=== PATIENT | female | born 1950 | race Caucasian/White ===

== ENCOUNTER 2016-11-21 06:18 | Inpatient (IN) | payer BC, OTHER ==
[~2016-11-21] VITALS: Ht 160 cm; Wt 77.3 kg
[~2016-11-21 06:18] MED LIST: BENTYL10 MG PO; BENTYL20 MG PO; DICYCLOMINE HCL10 MG PO; DILAUDID2 MG PO; DIOVAN HCT 11 TABLET PO; DIOVAN160 MG; KEFLEX250 MG PO; KEFLEX500 MG PO; LEVOTHYROXINE112 MCG PO; LEVSIN-SL0.125 MG SL; LIDOCAINE700 MG TD; MECLIZINE HCL25 MG PO; OXAYDO5 MG PO; PERCOCET 5/31 TABLET PO; PROTONIX20 MG PO; PROTONIX40 MG PO; RANITIDINE HCL300 MG PO; SYNTHROID88 MCG PO; VALIUM5 MG PO; VALSARTAN-HCTZ1 EAC1 PO; VENTOLIN HFA18 GM IH; VICODIN 5-3001 EACH PO; ZANTAC150 MG PO; ZANTAC300 MG PO; ZOFRAN4 MG PO
[2016-11-21 07:24] VITALS: BP 134/71
[2016-11-21 07:25] VITALS: BP 134/71
[2016-11-21 17:58] VITALS: BP 105/57
[2016-11-21 19:42] VITALS: BP 130/62
[2016-11-21 23:38] VITALS: BP 96/53
[2016-11-22 03:41] VITALS: BP 99/51
[2016-11-22 04:00] VITALS: BP 100/60
[2016-11-22 07:18] VITALS: BP 99/53
[2016-11-22 15:14] VITALS: BP 82/51
[2016-11-22 15:30] VITALS: BP 110/58
[2016-11-23 00:22] VITALS: BP 101/53
[2016-11-23 07:57] VITALS: BP 103/57
[2016-11-23 15:35] VITALS: BP 115/60
[2016-11-24 00:12] VITALS: BP 108/65
[2016-11-24 07:34] VITALS: BP 136/88
[2016-11-24 11:46] VITALS: BP 103/59
[2016-11-24] MEDS ORDERED: BACLOFEN10 MG PO (17:59)
[2016-11-24] MEDS ORDERED: DIAZEPAM5 MG PO (18:01)
== END 2016-11-24 17:30 | DRG 460 ==
LOC: 2SOUTH 06:18 → 3EAST 06:18 → 2SOUTH 11:00 → EDSTATUS 12:17 → SDC 12:17 → 2SOUTH 12:22 → 3EAST 17:38
DX: M43.16 Spondylolisthesis, lumbar region (principal); M51.16 Intervertebral disc disorders with radiculopathy, lumbar region; K22.70 Barrett's esophagus without dysplasia; I10 Essential (primary) hypertension; E03.9 Hypothyroidism, unspecified; Z68.30 Body mass index [BMI] 30.0-30.9, adult; Z87.442 Personal history of urinary calculi; Z90.49 Acquired absence of other specified parts of digestive tract
CPT/HCPCS: 72100; 76000; 84132; 97530 GO; J0330; J1100; J1170; J1580; J2405; J2765; J3010; J3370; J3480

== ENCOUNTER 2016-11-24 15:38 | Inpatient (IN) | payer BC, OTHER ==
[~2016-11-24] VITALS: Ht 160 cm; Wt 71.0 kg
[2016-11-24 17:46] VITALS: BP 152/67
[2016-11-24 17:54] VITALS: BP 152/67
[2016-11-24] MEDS ORDERED: BACLOFEN10 MG PO (17:59)
[2016-11-24] MEDS ORDERED: DIAZEPAM5 MG PO (18:01)
[2016-11-25 05:06] VITALS: BP 119/59
[2016-11-25 06:08] LABS: HEMATOCRIT 39.2 % (36.0-46.0); MCH 27.8 PG (29.0-34.0); MCHC 31.9 G/DL (30.0-36.0); MCV 87.1 FL (83-99); MEAN PLAT.VOLUME 10.4 uM^3 (9.5-12.4); PLATELET COUNT 297 K/uL (156-360); RBC DIS.WIDTH-CV 13.2 % (11.8-14.6); WHITE BLOOD COUNT 3.1 K/uL (4.1-10.2)
[2016-11-25 07:36] LABS: CHLORIDE 104 mEq/L (99-109); POTASSIUM 3.7 mEq/L (3.7-5.4); SODIUM 143 mEq/L (136-147)
[2016-11-25 07:38] LABS: GLUCOSE 96 mg/dL (70-99)
[2016-11-25 07:40] LABS: ANION GAP 16 MEQ/L (2-14); TOTAL BILIRUBIN 0.6 mg/dL (0.0-1.0)
[2016-11-25 07:42] LABS: ALKALINE PHOSPHATASE 67 IU/L (3-129); GFR ESTIMATE (CALCULATED) > 59 mL/min/
[2016-11-25 07:43] LABS: UREA NITROGEN (BUN) 14 mg/dL (9-23)
[2016-11-25 08:41] LABS: ABS NEUTROPHIL COUNT 1.5; ANISOCYTOSIS 1+; EOSINOPHIL ABS CT 0.1; INSTRUMENT ABS NEUTROPHIL CT 1.5 K/uL; PLAT.SUFFICIENCY ADEQUATE
[2016-11-25 12:35] VITALS: BP 132/64
[2016-11-27 09:51] LABS: POC NON-PRINT COM 1 ND
== END 2016-11-25 15:25 | DRG 556 ==
LOC: 3WEST 15:38
PROVIDERS: Psychiatry & Neurology Neurology
PROC: F07M0ZZ Range of Motion and Joint Mobility Treatment of Musculoskeletal System - Whole Body (ICD-10-PCS; principal; 2016-11-24)
DX: R26.2 Difficulty in walking, not elsewhere classified (principal); Z98.1 Arthrodesis status; K56.60 Unspecified intestinal obstruction; K91.2 Postsurgical malabsorption, not elsewhere classified; E03.9 Hypothyroidism, unspecified; I10 Essential (primary) hypertension; K21.9 Gastro-esophageal reflux disease without esophagitis; K22.70 Barrett's esophagus without dysplasia; M54.5 Low back pain; G89.29 Other chronic pain; Z80.0 Family history of malignant neoplasm of digestive organs; Z83.3 Family history of diabetes mellitus; Z86.19 Personal history of other infectious and parasitic diseases; Z90.49 Acquired absence of other specified parts of digestive tract; Z88.0 Allergy status to penicillin; Z88.1 Allergy status to other antibiotic agents; Z88.2 Allergy status to sulfonamides
CPT/HCPCS: 71010; 74020; 80053; 82272; 85025; C9113; J1170; J2405; J7030

== ENCOUNTER 2016-11-25 14:24 | Inpatient (IN) | payer BC, OTHER ==
[~2016-11-25] VITALS: Ht 160 cm; Wt 67.7 kg
[~2016-11-25 14:24] MED LIST changes: +BACLOFEN10 MG PO; +DIAZEPAM5 MG PO
[2016-11-25 15:45] VITALS: BP 128/62
[2016-11-25 20:36] VITALS: BP 120/61
[2016-11-26 00:38] VITALS: BP 147/62
[2016-11-26 04:14] VITALS: BP 128/68
[2016-11-26 06:42] LABS: HEMATOCRIT 36.2 % (36.0-46.0); MCH 27.8 PG (29.0-34.0); MCV 86.8 FL (83-99); MEAN PLAT.VOLUME 10.6 uM^3 (9.5-12.4); PLATELET COUNT 313 K/uL (156-360); RBC DIS.WIDTH-CV 12.8 % (11.8-14.6); RBC DIS.WIDTH-SD 40.8 % (39-53); RED BLOOD COUNT 4.17 M/uL (3.80-5.20); WHITE BLOOD COUNT 3.1 K/uL (4.1-10.2)
[2016-11-26 07:06] LABS: ANION GAP 15 MEQ/L (2-14); CHLORIDE 106 MEQ/L (99-109); GFR ESTIMATE (CALCULATED) > 59 mL/min/; GLUCOSE 74 mg/dL (70-99); POTASSIUM 3.2 MEQ/L (3.7-5.4); SAMPLE HEMOLYSIS CHECK 0; SAMPLE ICTERIC CHECK 0; SAMPLE LIPEMIA CHECK 0; SODIUM 144 MEQ/L (136-147); UREA NITROGEN (BUN) 12 mg/dL (9-23)
[2016-11-26 07:21] VITALS: BP 124/56
[2016-11-26 11:08] VITALS: BP 139/66
[2016-11-26 15:46] VITALS: BP 138/71
[2016-11-27 00:27] VITALS: BP 135/74
[2016-11-27 04:03] VITALS: BP 135/72
[2016-11-27 06:57] LABS: HEMATOCRIT 41.1 % (36.0-46.0); MCH 28.3 PG (29.0-34.0); MCHC 32.1 G/DL (30.0-36.0); MEAN PLAT.VOLUME 10.5 uM^3 (9.5-12.4); NRBC (%) 0.3 /100 WBC (0-0); PLATELET COUNT 364 K/uL (156-360); RBC DIS.WIDTH-CV 13.3 % (11.8-14.6); RBC DIS.WIDTH-SD 42.9 % (39-53); RED BLOOD COUNT 4.67 M/uL (3.80-5.20); WHITE BLOOD COUNT 7.8 K/uL (4.1-10.2)
[2016-11-27 06:59] LABS: ANION GAP 13 MEQ/L (2-14); CHLORIDE 108 MEQ/L (99-109); GFR ESTIMATE (CALCULATED) > 59 mL/min/; SAMPLE HEMOLYSIS CHECK 0; SAMPLE ICTERIC CHECK 0; SAMPLE LIPEMIA CHECK 0; SODIUM 145 MEQ/L (136-147); UREA NITROGEN (BUN) 9 mg/dL (9-23)
[2016-11-27 07:07] LABS: GLUCOSE 173 mg/dL (70-99)
[2016-11-27 07:14] LABS: ADD MIUA? YES; BILIRUBIN NEGATIVE; BLOOD SMALL; COLOR AMBER ((YELLOW)); GLUCOSE (STRIP) NEGATIVE; KETONES 80; LEUKOCYTES NEGATIVE; NITRITE NEGATIVE; PROTEIN (STRIP) 30; SPECIFIC GRAVITY 1.021 (1.000-1.030); UROBILINOGEN 0.2 MG/DL (0.2-1.0)
[2016-11-27 07:22] LABS: BACTERIA NONE SEEN /HPF; EPITHELIAL CELLS NONE SEEN /HPF; MUCUS 1+ /LPF; UCUL ADDED? NO; WHITE BLOOD CELLS 0-5 /HPF (0-5)
[2016-11-27 08:19] LABS: ABS NEUTROPHIL COUNT 5.5; ATYPICAL LYMPHOCYTE 0.9 %; EOSINOPHIL ABS CT 0.1; EOSINOPHILS 0.9 % (0-5.0); HEMATOLOGY COMMENT 1 SN; INSTRUMENT ABS NEUTROPHIL CT 6.1 K/uL; METAMYELOCYTES 2.7 %; MYELOCYTES 2.7 %; PLAT.SUFFICIENCY ADEQUATE
[2016-11-27 08:21] LABS: BAND NEUTROPHILS 24.3 % (0-8.0); LYMPHOCYTES 8.1 % (15.0-45.0)
[2016-11-27 08:28] VITALS: BP 145/77
[2016-11-27 11:38] VITALS: BP 140/68
[2016-11-27 15:58] VITALS: BP 132/64
[2016-11-27 20:27] VITALS: BP 141/63
[2016-11-28] VITALS (7 sets, daily range): BP systolic 122–143; BP diastolic 68–85
[2016-11-28 06:49] LABS: HEMATOCRIT 36.4 % (36.0-46.0); MCH 27.4 PG (29.0-34.0); MCHC 31.3 G/DL (30.0-36.0); MCV 87.5 FL (83-99); MEAN PLAT.VOLUME 10.3 uM^3 (9.5-12.4); NRBC (%) 0.4 /100 WBC (0-0); PLATELET COUNT 304 K/uL (156-360); RBC DIS.WIDTH-CV 13.2 % (11.8-14.6); RBC DIS.WIDTH-SD 42.7 % (39-53); RED BLOOD COUNT 4.16 M/uL (3.80-5.20); WHITE BLOOD COUNT 9.3 K/uL (4.1-10.2)
[2016-11-28 07:13] LABS: ANION GAP 9 MEQ/L (2-14); CHLORIDE 111 MEQ/L (99-109); GFR ESTIMATE (CALCULATED) > 59 mL/min/; GLUCOSE 137 mg/dL (70-99); MAGNESIUM 1.9 mg/dl (1.3-2.7); POTASSIUM 3.9 MEQ/L (3.7-5.4); PREALBUMIN 5.6 mg/dL (10-40); SAMPLE HEMOLYSIS CHECK 0; SAMPLE ICTERIC CHECK 0; SAMPLE LIPEMIA CHECK 0; SODIUM 145 MEQ/L (136-147); TRIGLYCERIDES 87 MG/DL (Normal: <150); UREA NITROGEN (BUN) 6 mg/dL (9-23)
[2016-11-28 07:57] LABS: BASOPHILS 0.9 %; EOSINOPHIL ABS CT 0.4; EOSINOPHILS 4.5 % (0-5.0); HEMATOLOGY COMMENT 1 SN; INSTRUMENT ABS NEUTROPHIL CT 6.2 K/uL; LYMPHOCYTES 7.2 % (15.0-45.0); MYELOCYTES 2.7 %; NUCLEATED RBC'S 3.6; PLAT.SUFFICIENCY ADEQUATE; POLYCHROMASIA 1+
[2016-11-28 08:14] LABS: SEG.NEUTROPHILS 66.7 % (46.0-76.0)
[2016-11-28 12:12] LABS: ADD MIUA? YES; BILIRUBIN NEGATIVE; BLOOD SMALL; COLOR YELLOW ((YELLOW)); GLUCOSE (STRIP) NEGATIVE; KETONES NEGATIVE; LEUKOCYTES NEGATIVE; NITRITE NEGATIVE; PROTEIN (STRIP) NEGATIVE; SPECIFIC GRAVITY 1.016 (1.000-1.030); UROBILINOGEN 0.2 MG/DL (0.2-1.0)
[2016-11-28 12:38] LABS: BACTERIA NONE SEEN /HPF; EPITHELIAL CELLS RARE /HPF; MUCUS TRACE /LPF; RED BLOOD CELLS 20-30 /HPF (0-5); UCUL ADDED? NO; WHITE BLOOD CELLS 0-5 /HPF (0-5)
[2016-11-29 04:11] VITALS: BP 126/66
[2016-11-29 06:42] LABS: HEMATOCRIT 33.1 % (36.0-46.0); MCH 28.4 PG (29.0-34.0); MCHC 33.5 G/DL (30.0-36.0); MCV 84.7 FL (83-99); NRBC (%) 0.4 /100 WBC (0-0); RBC DIS.WIDTH-CV 13.3 % (11.8-14.6); RBC DIS.WIDTH-SD 41.4 % (39-53); RED BLOOD COUNT 3.91 M/uL (3.80-5.20); WHITE BLOOD COUNT 8.6 K/uL (4.1-10.2)
[2016-11-29 07:02] LABS: ANION GAP 10 MEQ/L (2-14); CHLORIDE 111 MEQ/L (99-109); MAGNESIUM 2.1 mg/dl (1.3-2.7); POTASSIUM 3.5 MEQ/L (3.7-5.4); SAMPLE HEMOLYSIS CHECK 0; SAMPLE ICTERIC CHECK 0; SAMPLE LIPEMIA CHECK 0; SODIUM 146 MEQ/L (136-147)
[2016-11-29 07:09] LABS: GFR ESTIMATE (CALCULATED) > 59 mL/min/; GLUCOSE 142 mg/dL (70-99); UREA NITROGEN (BUN) 10 mg/dL (9-23)
[2016-11-29 07:25] LABS: MEAN PLAT.VOLUME 11.2 uM^3 (9.5-12.4); PLAT.SUFFICIENCY ADEQUATE; PLATELET CLUMPS PRESENT - PLATELET COUNT APPEARS ADQ.
[2016-11-29 08:20] VITALS: BP 145/73
[2016-11-29 11:12] VITALS: BP 186/87
[2016-11-29 15:40] VITALS: BP 186/86
[2016-11-29 20:11] VITALS: BP 139/72
[2016-11-30] VITALS (7 sets, daily range): BP systolic 121–140; BP diastolic 63–83
[2016-11-30 06:19] LABS: HEMATOCRIT 34.6 % (36.0-46.0); MCHC 32.4 G/DL (30.0-36.0); MCV 86.5 FL (83-99); MEAN PLAT.VOLUME 10.4 uM^3 (9.5-12.4); NRBC (%) 0.3 /100 WBC (0-0); PLATELET COUNT 252 K/uL (156-360); RBC DIS.WIDTH-CV 13.4 % (11.8-14.6); RBC DIS.WIDTH-SD 42.5 % (39-53); WHITE BLOOD COUNT 9.9 K/uL (4.1-10.2)
[2016-11-30 06:41] LABS: ANION GAP 10 MEQ/L (2-14); CHLORIDE 110 MEQ/L (99-109); GFR ESTIMATE (CALCULATED) > 59 mL/min/; GLUCOSE 132 mg/dL (70-99); MAGNESIUM 2.4 mg/dl (1.3-2.7); POTASSIUM 3.8 MEQ/L (3.7-5.4); SAMPLE HEMOLYSIS CHECK 0; SAMPLE ICTERIC CHECK 0; SAMPLE LIPEMIA CHECK 0; SODIUM 147 MEQ/L (136-147); UREA NITROGEN (BUN) 16 mg/dL (9-23)
[2016-12-01 04:04] VITALS: BP 122/65
[2016-12-01 06:56] LABS: HEMATOCRIT 36.9 % (36.0-46.0); MCH 27.7 PG (29.0-34.0); MCHC 31.4 G/DL (30.0-36.0); MCV 88.1 FL (83-99); MEAN PLAT.VOLUME 10.7 uM^3 (9.5-12.4); NRBC (%) 0.7 /100 WBC (0-0); PLATELET COUNT 293 K/uL (156-360); RBC DIS.WIDTH-CV 13.8 % (11.8-14.6); RBC DIS.WIDTH-SD 44.4 % (39-53); RED BLOOD COUNT 4.19 M/uL (3.80-5.20); WHITE BLOOD COUNT 12.6 K/uL (4.1-10.2)
[2016-12-01 07:13] LABS: ANION GAP 11 MEQ/L (2-14); CHLORIDE 109 MEQ/L (99-109); GFR ESTIMATE (CALCULATED) > 59 mL/min/; GLUCOSE 125 mg/dL (70-99); MAGNESIUM 2.6 mg/dl (1.3-2.7); POTASSIUM 4.4 MEQ/L (3.7-5.4); SAMPLE HEMOLYSIS CHECK 0; SAMPLE ICTERIC CHECK 0; SAMPLE LIPEMIA CHECK 0; SODIUM 151 MEQ/L (136-147); UREA NITROGEN (BUN) 21 mg/dL (9-23)
[2016-12-01 08:20] VITALS: BP 129/67
[2016-12-01 11:53] VITALS: BP 133/73
[2016-12-01 15:42] VITALS: BP 150/69
[2016-12-01 19:53] VITALS: BP 175/79
[2016-12-02 00:08] VITALS: BP 126/64
[2016-12-02 04:08] VITALS: BP 139/77
[2016-12-02 07:21] LABS: HEMATOCRIT 43.8 % (36.0-46.0); MCH 27.1 PG (29.0-34.0); MCHC 30.8 G/DL (30.0-36.0); MCV 87.8 FL (83-99); MEAN PLAT.VOLUME 11.2 uM^3 (9.5-12.4); NRBC (%) 0.6 /100 WBC (0-0); PLATELET COUNT 344 K/uL (156-360); RBC DIS.WIDTH-CV 13.7 % (11.8-14.6); RBC DIS.WIDTH-SD 44.1 % (39-53); RED BLOOD COUNT 4.99 M/uL (3.80-5.20); WHITE BLOOD COUNT 15.5 K/uL (4.1-10.2)
[2016-12-02 07:40] LABS: ANION GAP 16 MEQ/L (2-14); CHLORIDE 100 MEQ/L (99-109); GFR ESTIMATE (CALCULATED) > 59 mL/min/; GLUCOSE 147 mg/dL (70-99); MAGNESIUM 2.9 mg/dl (1.3-2.7); POTASSIUM 3.9 MEQ/L (3.7-5.4); SAMPLE HEMOLYSIS CHECK 0; SAMPLE ICTERIC CHECK 0; SAMPLE LIPEMIA CHECK 0; SODIUM 149 MEQ/L (136-147); UREA NITROGEN (BUN) 28 mg/dL (9-23)
[2016-12-02 08:21] VITALS: BP 143/84
[2016-12-02 11:57] VITALS: BP 142/83
[2016-12-02 12:41] LABS: ADD MIUA? YES; BILIRUBIN NEGATIVE; BLOOD NEGATIVE; COLOR YELLOW ((YELLOW)); GLUCOSE (STRIP) NEGATIVE; KETONES NEGATIVE; LEUKOCYTES NEGATIVE; NITRITE NEGATIVE; PROTEIN (STRIP) 30; SPECIFIC GRAVITY 1.027 (1.000-1.030); UROBILINOGEN 0.2 MG/DL (0.2-1.0)
[2016-12-02 12:47] LABS: BACTERIA RARE /HPF; EPITHELIAL CELLS RARE /HPF; MUCUS TRACE /LPF; UCUL ADDED? NO
[2016-12-02 16:09] VITALS: BP 143/71
[2016-12-02 19:53] VITALS: BP 134/74
[2016-12-03] VITALS (14 sets, daily range): BP systolic 123–165; BP diastolic 72–110
[2016-12-03 06:53] LABS: HEMATOCRIT 46.9 % (36.0-46.0); MCH 27.8 PG (29.0-34.0); MCHC 32.2 G/DL (30.0-36.0); MCV 86.4 FL (83-99); MEAN PLAT.VOLUME 11.7 uM^3 (9.5-12.4); NRBC (%) 0.8 /100 WBC (0-0); PLATELET COUNT 367 K/uL (156-360); RBC DIS.WIDTH-CV 13.9 % (11.8-14.6); RBC DIS.WIDTH-SD 43.5 % (39-53); RED BLOOD COUNT 5.43 M/uL (3.80-5.20)
[2016-12-03 07:12] LABS: ANION GAP 19 MEQ/L (2-14); CHLORIDE 93 MEQ/L (99-109); GFR ESTIMATE (CALCULATED) 59 mL/min/; GLUCOSE 162 mg/dL (70-99); MAGNESIUM 2.6 mg/dl (1.3-2.7); POTASSIUM 4.4 MEQ/L (3.7-5.4); SAMPLE HEMOLYSIS CHECK 0; SAMPLE ICTERIC CHECK 0; SAMPLE LIPEMIA CHECK 0; SODIUM 149 MEQ/L (136-147)
[2016-12-03 07:13] LABS: UREA NITROGEN (BUN) 50 mg/dL (9-23)
[2016-12-03 13:33] LABS: METH RESISTANT S AUREUS PCR NEGATIVE (NEGATIVE); PROBE CHECK PASS; SPECIMEN PROCESSING CONTROL PASS
[2016-12-03 17:12] LABS: HEMATOCRIT 43.2 % (36.0-46.0); MCH 27.3 PG (29.0-34.0); MCHC 30.8 G/DL (30.0-36.0); MCV 88.7 FL (83-99); MEAN PLAT.VOLUME 11.4 uM^3 (9.5-12.4); NRBC (%) 0.4 /100 WBC (0-0); PLATELET COUNT 360 K/uL (156-360); RBC DIS.WIDTH-CV 13.7 % (11.8-14.6); RBC DIS.WIDTH-SD 44.5 % (39-53); RED BLOOD COUNT 4.87 M/uL (3.80-5.20); WHITE BLOOD COUNT 19.3 K/uL (4.1-10.2)
[2016-12-03 17:39] LABS: ABS NEUTROPHIL COUNT 13.9; ANISOCYTOSIS 1+; ATYPICAL LYMPHOCYTE 0.9 %; BAND NEUTROPHILS 7.3 % (0-8.0); EOSINOPHIL ABS CT 0.2; EOSINOPHILS 0.9 % (0-5.0); INSTRUMENT ABS NEUTROPHIL CT 13.7 K/uL; LYMPHOCYTES 14.5 % (15.0-45.0); METAMYELOCYTES 3.6 %; MYELOCYTES 0.9 %; NUCLEATED RBC'S 0.9; SEG.NEUTROPHILS 64.6 % (46.0-76.0)
[2016-12-04] VITALS (23 sets, daily range): BP systolic 114–147; BP diastolic 69–92
[2016-12-04 05:27] LABS: HEMATOCRIT 39.9 % (36.0-46.0); MCH 27.8 PG (29.0-34.0); MCHC 31.3 G/DL (30.0-36.0); MCV 88.9 FL (83-99); MEAN PLAT.VOLUME 11.9 uM^3 (9.5-12.4); NRBC (%) 0.3 /100 WBC (0-0); PLATELET COUNT 343 K/uL (156-360); RBC DIS.WIDTH-CV 13.8 % (11.8-14.6); RBC DIS.WIDTH-SD 44.5 % (39-53); RED BLOOD COUNT 4.49 M/uL (3.80-5.20); WHITE BLOOD COUNT 16.4 K/uL (4.1-10.2)
[2016-12-04 05:54] LABS: ALKALINE PHOSPHATASE 291 IU/L (3-129); ALKALINE PHOSPHATASE 298 IU/L (3-129); ANION GAP 10 MEQ/L (2-14); ANION GAP 9 MEQ/L (2-14); CHLORIDE 100 MEQ/L (99-109); DIRECT BILIRUBIN 0.1 mg/dL (0.0-0.3); DIRECT BILIRUBIN 0.2 mg/dL (0.0-0.3); GFR ESTIMATE (CALCULATED) > 59 mL/min/; GLUCOSE 157 mg/dL (70-99); GLUCOSE 164 mg/dL (70-99); MAGNESIUM 2.3 mg/dl (1.3-2.7); POTASSIUM 4.2 MEQ/L (3.7-5.4); PREALBUMIN 21.5 mg/dL (10-40); SAMPLE HEMOLYSIS CHECK 0; SAMPLE ICTERIC CHECK 0; SAMPLE LIPEMIA CHECK 0; SODIUM 142 MEQ/L (136-147); SODIUM 144 MEQ/L (136-147); TOTAL BILIRUBIN 0.5 MG/DL (0.0-1.0); TRIGLYCERIDES 426 MG/DL (Normal: <150); UREA NITROGEN (BUN) 39 mg/dL (9-23)
[2016-12-04 06:49] LABS: ABS NEUTROPHIL COUNT 13.5; BAND NEUTROPHILS 7.1 % (0-8.0); EOSINOPHIL ABS CT 0.1; EOSINOPHILS 0.9 % (0-5.0); INSTRUMENT ABS NEUTROPHIL CT 11.5 K/uL; LYMPHOCYTES 9.7 % (15.0-45.0); METAMYELOCYTES 1.8 %; MYELOCYTES 0.9 %; NUCLEATED RBC'S 1.8; PLAT.SUFFICIENCY ADEQUATE; POLYCHROMASIA 1+; SEG.NEUTROPHILS 75.2 % (46.0-76.0)
[2016-12-04 13:47] LABS: AMYLASE 38 IU/L (1-118); LIPASE 81 U/L (1.0-51.0)
[2016-12-05] VITALS (18 sets, daily range): BP systolic 107–143; BP diastolic 60–86
[2016-12-05 04:56] LABS: HEMATOCRIT 37.9 % (36.0-46.0); MCH 27.4 PG (29.0-34.0); MCHC 31.4 G/DL (30.0-36.0); MCV 87.1 FL (83-99); MEAN PLAT.VOLUME 12.1 uM^3 (9.5-12.4); NRBC (%) 0.4 /100 WBC (0-0); PLATELET COUNT 330 K/uL (156-360); RBC DIS.WIDTH-CV 13.3 % (11.8-14.6); RBC DIS.WIDTH-SD 41.8 % (39-53); RED BLOOD COUNT 4.35 M/uL (3.80-5.20); WHITE BLOOD COUNT 14.3 K/uL (4.1-10.2)
[2016-12-05 05:15] LABS: CHLORIDE 103 mEq/L (99-109); POTASSIUM 4.1 mEq/L (3.7-5.4); SODIUM 140 mEq/L (136-147)
[2016-12-05 05:16] LABS: MAGNESIUM 1.6 mg/dL (1.3-2.7)
[2016-12-05 05:17] LABS: GLUCOSE 154 mg/dL (70-99)
[2016-12-05 05:18] LABS: ANION GAP 8 MEQ/L (2-14)
[2016-12-05 05:21] LABS: GFR ESTIMATE (CALCULATED) > 59 mL/min/
[2016-12-05 05:22] LABS: UREA NITROGEN (BUN) 30 mg/dL (9-23)
[2016-12-05 07:35] LABS: AMYLASE 67 IU/L (1-118)
[2016-12-05 07:39] LABS: TOTAL BILIRUBIN 0.4 mg/dL (0.0-1.0)
[2016-12-05 07:40] LABS: ALKALINE PHOSPHATASE 308 IU/L (3-129)
[2016-12-05 07:43] LABS: DIRECT BILIRUBIN 0.2 mg/dL (0.0-0.3)
[2016-12-05 07:44] LABS: LIPASE 94 U/L (1.0-51.0)
[2016-12-05 08:36] LABS: ADD MIUA? YES; BILIRUBIN NEGATIVE; BLOOD NEGATIVE; COLOR AMBER ((YELLOW)); GLUCOSE (STRIP) NEGATIVE; KETONES NEGATIVE; LEUKOCYTES TRACE; NITRITE NEGATIVE; PROTEIN (STRIP) NEGATIVE; SPECIFIC GRAVITY 1.029 (1.000-1.030); UROBILINOGEN 0.2 MG/DL (0.2-1.0)
[2016-12-05 08:40] LABS: BACTERIA RARE /HPF; EPITHELIAL CELLS RARE /HPF; MUCUS TRACE /LPF; RED BLOOD CELLS 20-30 /HPF (0-5); UCUL ADDED? NO; WHITE BLOOD CELLS 0-5 /HPF (0-5)
[2016-12-06] VITALS (7 sets, daily range): BP systolic 112–143; BP diastolic 63–82
[2016-12-06 05:33] LABS: HEMATOCRIT 33.8 % (36.0-46.0); MCH 27.7 PG (29.0-34.0); MCHC 32.2 G/DL (30.0-36.0); MEAN PLAT.VOLUME 12.1 uM^3 (9.5-12.4); NRBC (%) 0.5 /100 WBC (0-0); PLATELET COUNT 287 K/uL (156-360); RBC DIS.WIDTH-CV 13.5 % (11.8-14.6); RBC DIS.WIDTH-SD 42.3 % (39-53); RED BLOOD COUNT 3.93 M/uL (3.80-5.20); WHITE BLOOD COUNT 12.8 K/uL (4.1-10.2)
[2016-12-06 06:11] LABS: ALKALINE PHOSPHATASE 257 IU/L (3-129); ANION GAP 9 MEQ/L (2-14); CHLORIDE 104 MEQ/L (99-109); GFR ESTIMATE (CALCULATED) > 59 mL/min/; GLUCOSE 133 mg/dL (70-99); POTASSIUM 3.6 MEQ/L (3.7-5.4); SAMPLE HEMOLYSIS CHECK 0; SAMPLE ICTERIC CHECK 0; SAMPLE LIPEMIA CHECK 0; SODIUM 137 MEQ/L (136-147); TOTAL BILIRUBIN 0.4 MG/DL (0.0-1.0); UREA NITROGEN (BUN) 18 mg/dL (9-23)
[2016-12-06 06:33] LABS: MAGNESIUM 1.6 mg/dl (1.3-2.7)
[2016-12-07] VITALS: BP 116/69
[2016-12-07 04:00] VITALS: BP 128/72
[2016-12-07 05:16] LABS: CHLORIDE 107 mEq/L (99-109)
[2016-12-07 05:17] LABS: HEMATOCRIT 35.1 % (36.0-46.0); MCHC 32.2 G/DL (30.0-36.0); MCV 86.9 FL (83-99); MEAN PLAT.VOLUME 11.9 uM^3 (9.5-12.4); NRBC (%) 0.3 /100 WBC (0-0); PLATELET COUNT 313 K/uL (156-360); RBC DIS.WIDTH-CV 13.9 % (11.8-14.6); RED BLOOD COUNT 4.04 M/uL (3.80-5.20); SODIUM 136 mEq/L (136-147); WHITE BLOOD COUNT 12.9 K/uL (4.1-10.2)
[2016-12-07 05:19] LABS: GLUCOSE 151 mg/dL (70-99)
[2016-12-07 05:20] LABS: ANION GAP 7 MEQ/L (2-14)
[2016-12-07 05:22] LABS: GFR ESTIMATE (CALCULATED) > 59 mL/min/
[2016-12-07 05:23] LABS: UREA NITROGEN (BUN) 20 mg/dL (9-23)
[2016-12-07 05:35] LABS: MAGNESIUM 2.3 mg/dL (1.3-2.7); POTASSIUM 4.7 mEq/L (3.7-5.4)
[2016-12-07 08:00] VITALS: BP 136/82
[2016-12-07 12:00] VITALS: BP 128/79
[2016-12-07 16:00] VITALS: BP 113/64
[2016-12-07 20:00] VITALS: BP 123/69
[2016-12-08] VITALS (9 sets, daily range): BP systolic 0–139; BP diastolic 0–82
[2016-12-08 05:59] LABS: BASOPHIL COUNT 0.1 K/uL (0-0.1); EOSINOPHIL (%) 2.5 % (0-5); EOSINOPHIL COUNT 0.4 K/uL (0-0.3); HEMATOCRIT 34.6 % (36.0-46.0); IMMATURE GRANULOCYTE (%) 4.2 % (0.0-0.7); IMMATURE GRANULOCYTE COUNT 0.6 K/uL; INSTRUMENT ABS NEUTROPHIL CT 10.3 K/uL; LYMPHOCYTE COUNT 1.3 K/uL (1.0-2.8); MCH 27.5 PG (29.0-34.0); MCHC 31.5 G/DL (30.0-36.0); MCV 87.4 FL (83-99); MONOCYTE COUNT 1.2 K/uL (0-0.8); NEUTROPHIL (%) 74.8 % (45-76); NEUTROPHIL COUNT 10.3 K/uL (1.8-6.4); NRBC (%) 0.1 /100 WBC (0-0); PLATELET COUNT 337 K/uL (156-360); RBC DIS.WIDTH-CV 14.5 % (11.8-14.6); RBC DIS.WIDTH-SD 44.3 % (39-53); RED BLOOD COUNT 3.96 M/uL (3.80-5.20); WHITE BLOOD COUNT 13.8 K/uL (4.1-10.2)
[2016-12-08 06:28] LABS: ALKALINE PHOSPHATASE 253 IU/L (3-129); ANION GAP 10 MEQ/L (2-14); CHLORIDE 106 MEQ/L (99-109); GFR ESTIMATE (CALCULATED) > 59 mL/min/; GLUCOSE 143 mg/dL (70-99); POTASSIUM 4.8 MEQ/L (3.7-5.4); SAMPLE HEMOLYSIS CHECK 0; SAMPLE ICTERIC CHECK 0; SAMPLE LIPEMIA CHECK 0; SODIUM 136 MEQ/L (136-147); UREA NITROGEN (BUN) 18 mg/dL (9-23)
[2016-12-08 06:30] LABS: TOTAL BILIRUBIN 0.3 MG/DL (0.0-1.0)
[2016-12-08 08:57] LABS: MAGNESIUM 2.5 mg/dl (1.3-2.7)
[2016-12-09] VITALS (10 sets, daily range): BP systolic 0–132; BP diastolic 0–72
[2016-12-09 06:28] LABS: ANION GAP 9 MEQ/L (2-14); CHLORIDE 103 MEQ/L (99-109); MAGNESIUM 2.3 mg/dl (1.3-2.7); POTASSIUM 4.2 MEQ/L (3.7-5.4); SAMPLE HEMOLYSIS CHECK 0; SAMPLE ICTERIC CHECK 0; SAMPLE LIPEMIA CHECK 0; SODIUM 133 MEQ/L (136-147)
[2016-12-09 06:34] LABS: GFR ESTIMATE (CALCULATED) > 59 mL/min/; GLUCOSE 146 mg/dL (70-99); UREA NITROGEN (BUN) 17 mg/dL (9-23)
[2016-12-09 09:10] LABS: ALKALINE PHOSPHATASE 237 IU/L (3-129); DIRECT BILIRUBIN 0.1 mg/dL (0.0-0.3); TOTAL BILIRUBIN 0.3 MG/DL (0.0-1.0)
[2016-12-10] VITALS: BP 94/66
[2016-12-10 04:00] VITALS: BP 114/54
[2016-12-10 05:22] LABS: EOSINOPHIL (%) 2.4 % (0-5); EOSINOPHIL COUNT 0.3 K/uL (0-0.3); HEMATOCRIT 32.9 % (36.0-46.0); IMMATURE GRANULOCYTE (%) 1.9 % (0.0-0.7); IMMATURE GRANULOCYTE COUNT 0.2 K/uL; INSTRUMENT ABS NEUTROPHIL CT 7.5 K/uL; LYMPHOCYTE COUNT 1.2 K/uL (1.0-2.8); MCH 27.1 PG (29.0-34.0); MCV 87.5 FL (83-99); MEAN PLAT.VOLUME 11.8 uM^3 (9.5-12.4); MONOCYTE (%) 11.2 % (3-12); MONOCYTE COUNT 1.2 K/uL (0-0.8); NEUTROPHIL (%) 72.2 % (45-76); NEUTROPHIL COUNT 7.5 K/uL (1.8-6.4); PLATELET COUNT 371 K/uL (156-360); RBC DIS.WIDTH-CV 14.9 % (11.8-14.6); RBC DIS.WIDTH-SD 46.9 % (39-53); RED BLOOD COUNT 3.76 M/uL (3.80-5.20); WHITE BLOOD COUNT 10.4 K/uL (4.1-10.2)
[2016-12-10 05:57] LABS: ANION GAP 8 MEQ/L (2-14); CHLORIDE 106 MEQ/L (99-109); GFR ESTIMATE (CALCULATED) > 59 mL/min/; GLUCOSE 151 mg/dL (70-99); MAGNESIUM 2.1 mg/dl (1.3-2.7); POTASSIUM 3.9 MEQ/L (3.7-5.4); SAMPLE HEMOLYSIS CHECK 0; SAMPLE ICTERIC CHECK 0; SAMPLE LIPEMIA CHECK 0; SODIUM 136 MEQ/L (136-147); UREA NITROGEN (BUN) 15 mg/dL (9-23)
[2016-12-10 05:59] LABS: ALKALINE PHOSPHATASE 208 IU/L (3-129); ANION GAP 6 MEQ/L (2-14); CHLORIDE 106 MEQ/L (99-109); GFR ESTIMATE (CALCULATED) > 59 mL/min/; GLUCOSE 151 mg/dL (70-99); POTASSIUM 3.9 MEQ/L (3.7-5.4); SAMPLE HEMOLYSIS CHECK 0; SAMPLE ICTERIC CHECK 0; SAMPLE LIPEMIA CHECK 0; SODIUM 136 MEQ/L (136-147); TOTAL BILIRUBIN 0.3 MG/DL (0.0-1.0); UREA NITROGEN (BUN) 16 mg/dL (9-23)
[2016-12-10 08:00] VITALS: BP 129/66
[2016-12-10 12:00] VITALS: BP 134/78
[2016-12-10 16:00] VITALS: BP 122/64
[2016-12-10 20:00] VITALS: BP 144/66
[2016-12-11] VITALS (7 sets, daily range): BP systolic 112–130; BP diastolic 67–73
[2016-12-11 06:25] LABS: EOSINOPHIL (%) 3.2 % (0-5); EOSINOPHIL COUNT 0.3 K/uL (0-0.3); HEMATOCRIT 32.6 % (36.0-46.0); IMMATURE GRANULOCYTE (%) 1.2 % (0.0-0.7); IMMATURE GRANULOCYTE COUNT 0.1 K/uL; INSTRUMENT ABS NEUTROPHIL CT 6.4 K/uL; LYMPHOCYTE COUNT 1.1 K/uL (1.0-2.8); MCH 28.3 PG (29.0-34.0); MCHC 31.9 G/DL (30.0-36.0); MCV 88.6 FL (83-99); MONOCYTE (%) 10.7 % (3-12); NEUTROPHIL (%) 71.8 % (45-76); NEUTROPHIL COUNT 6.4 K/uL (1.8-6.4); PLATELET COUNT 364 K/uL (156-360); RBC DIS.WIDTH-SD 47.8 % (39-53); RED BLOOD COUNT 3.68 M/uL (3.80-5.20); WHITE BLOOD COUNT 8.9 K/uL (4.1-10.2)
[2016-12-11 06:54] LABS: ALKALINE PHOSPHATASE 196 IU/L (3-129); ANION GAP 9 MEQ/L (2-14); CHLORIDE 106 MEQ/L (99-109); GFR ESTIMATE (CALCULATED) > 59 mL/min/; GLUCOSE 153 mg/dL (70-99); POTASSIUM 4.2 MEQ/L (3.7-5.4); PREALBUMIN 29.9 mg/dL (10-40); SAMPLE HEMOLYSIS CHECK 0; SAMPLE ICTERIC CHECK 0; SAMPLE LIPEMIA CHECK 0; SODIUM 138 MEQ/L (136-147); TOTAL BILIRUBIN 0.3 MG/DL (0.0-1.0); TRIGLYCERIDES 197 MG/DL (Normal: <150); UREA NITROGEN (BUN) 14 mg/dL (9-23)
[2016-12-12] VITALS (8 sets, daily range): BP systolic 110–144; BP diastolic 61–94
[2016-12-12 06:01] LABS: BASOPHIL COUNT 0.1 K/uL (0-0.1); EOSINOPHIL COUNT 0.4 K/uL (0-0.3); HEMATOCRIT 34.1 % (36.0-46.0); IMMATURE GRANULOCYTE (%) 1.1 % (0.0-0.7); IMMATURE GRANULOCYTE COUNT 0.1 K/uL; INSTRUMENT ABS NEUTROPHIL CT 5.9 K/uL; LYMPHOCYTE COUNT 0.8 K/uL (1.0-2.8); MCH 27.9 PG (29.0-34.0); MCHC 31.7 G/DL (30.0-36.0); MCV 88.1 FL (83-99); MONOCYTE (%) 9.8 % (3-12); MONOCYTE COUNT 0.8 K/uL (0-0.8); NEUTROPHIL (%) 73.2 % (45-76); NEUTROPHIL COUNT 5.9 K/uL (1.8-6.4); PLATELET COUNT 375 K/uL (156-360); RED BLOOD COUNT 3.87 M/uL (3.80-5.20); WHITE BLOOD COUNT 8.1 K/uL (4.1-10.2)
[2016-12-12 06:30] LABS: ANION GAP 9 MEQ/L (2-14); CHLORIDE 106 MEQ/L (99-109); GFR ESTIMATE (CALCULATED) > 59 mL/min/; GLUCOSE 145 mg/dL (70-99); MAGNESIUM 1.9 mg/dl (1.3-2.7); POTASSIUM 4.1 MEQ/L (3.7-5.4); SAMPLE HEMOLYSIS CHECK 0; SAMPLE ICTERIC CHECK 0; SAMPLE LIPEMIA CHECK 0; SODIUM 137 MEQ/L (136-147); UREA NITROGEN (BUN) 12 mg/dL (9-23)
[2016-12-12 06:35] LABS: ALKALINE PHOSPHATASE 192 IU/L (3-129); ANION GAP 10 MEQ/L (2-14); CHLORIDE 106 MEQ/L (99-109); GFR ESTIMATE (CALCULATED) > 59 mL/min/; GLUCOSE 150 mg/dL (70-99); SAMPLE HEMOLYSIS CHECK 0; SAMPLE ICTERIC CHECK 0; SAMPLE LIPEMIA CHECK 0; SODIUM 138 MEQ/L (136-147); TOTAL BILIRUBIN 0.3 MG/DL (0.0-1.0); UREA NITROGEN (BUN) 13 mg/dL (9-23)
[2016-12-12 11:37] LABS: URINE UREA NITROGEN 7482 MG/24 HR
[2016-12-12 21:28] LABS: ADD MIUA? NO; BILIRUBIN NEGATIVE; BLOOD NEGATIVE; COLOR YELLOW ((YELLOW)); GLUCOSE (STRIP) NEGATIVE; KETONES NEGATIVE; LEUKOCYTES NEGATIVE; NITRITE NEGATIVE; PROTEIN (STRIP) NEGATIVE; SPECIFIC GRAVITY 1.011 (1.000-1.030); UCUL ADDED? NO; UROBILINOGEN 0.2 MG/DL (0.2-1.0)
[2016-12-13] VITALS (8 sets, daily range): BP systolic 112–149; BP diastolic 58–88
[2016-12-13 05:42] LABS: ANION GAP 9 MEQ/L (2-14); CHLORIDE 103 MEQ/L (99-109); GFR ESTIMATE (CALCULATED) > 59 mL/min/; GLUCOSE 142 mg/dL (70-99); POTASSIUM 4.2 MEQ/L (3.7-5.4); SAMPLE HEMOLYSIS CHECK 0; SAMPLE ICTERIC CHECK 0; SAMPLE LIPEMIA CHECK 0; SODIUM 136 MEQ/L (136-147); UREA NITROGEN (BUN) 13 mg/dL (9-23)
[2016-12-14] VITALS (7 sets, daily range): BP systolic 107–150; BP diastolic 69–85
[2016-12-14 06:05] LABS: ANION GAP 12 MEQ/L (2-14); CHLORIDE 102 MEQ/L (99-109); GFR ESTIMATE (CALCULATED) > 59 mL/min/; GLUCOSE 146 mg/dL (70-99); MAGNESIUM 2.2 mg/dl (1.3-2.7); POTASSIUM 4.3 MEQ/L (3.7-5.4); SAMPLE HEMOLYSIS CHECK 0; SAMPLE ICTERIC CHECK 0; SAMPLE LIPEMIA CHECK 0; SODIUM 136 MEQ/L (136-147); UREA NITROGEN (BUN) 15 mg/dL (9-23)
[2016-12-15] VITALS (9 sets, daily range): BP systolic 96–154; BP diastolic 45–92
[2016-12-15 05:12] LABS: CHLORIDE 104 mEq/L (99-109); POTASSIUM 4.4 mEq/L (3.7-5.4); SODIUM 134 mEq/L (136-147)
[2016-12-15 05:13] LABS: MAGNESIUM 2.1 mg/dL (1.3-2.7)
[2016-12-15 05:14] LABS: GLUCOSE 148 mg/dL (70-99)
[2016-12-15 05:16] LABS: ANION GAP 10 MEQ/L (2-14)
[2016-12-15 05:18] LABS: GFR ESTIMATE (CALCULATED) > 59 mL/min/
[2016-12-15 05:19] LABS: UREA NITROGEN (BUN) 17 mg/dL (9-23)
[2016-12-15 08:50] LABS: MCH 26.5 PG (29.0-34.0); MCHC 30.8 G/DL (30.0-36.0); MCV 86.3 FL (83-99); MEAN PLAT.VOLUME 11.5 uM^3 (9.5-12.4); PLATELET COUNT 369 K/uL (156-360); RBC DIS.WIDTH-CV 14.8 % (11.8-14.6); RBC DIS.WIDTH-SD 46.7 % (39-53); RED BLOOD COUNT 4.52 M/uL (3.80-5.20); WHITE BLOOD COUNT 9.8 K/uL (4.1-10.2)
[2016-12-16] VITALS (8 sets, daily range): BP systolic 117–136; BP diastolic 66–86
[2016-12-16 05:54] LABS: HEMATOCRIT 34.6 % (36.0-46.0); MCH 27.7 PG (29.0-34.0); MCHC 31.8 G/DL (30.0-36.0); MCV 87.2 FL (83-99); MEAN PLAT.VOLUME 11.3 uM^3 (9.5-12.4); PLATELET COUNT 389 K/uL (156-360); RBC DIS.WIDTH-CV 14.9 % (11.8-14.6); RBC DIS.WIDTH-SD 47.6 % (39-53); RED BLOOD COUNT 3.97 M/uL (3.80-5.20); WHITE BLOOD COUNT 8.5 K/uL (4.1-10.2)
[2016-12-16 06:20] LABS: ANION GAP 10 MEQ/L (2-14); CHLORIDE 104 MEQ/L (99-109); GFR ESTIMATE (CALCULATED) > 59 mL/min/; GLUCOSE 146 mg/dL (70-99); MAGNESIUM 2.1 mg/dl (1.3-2.7); POTASSIUM 4.5 MEQ/L (3.7-5.4); SAMPLE HEMOLYSIS CHECK 0; SAMPLE ICTERIC CHECK 0; SAMPLE LIPEMIA CHECK 0; SODIUM 137 MEQ/L (136-147); UREA NITROGEN (BUN) 16 mg/dL (9-23)
[2016-12-17] VITALS (7 sets, daily range): BP systolic 105–139; BP diastolic 63–73
[2016-12-17 05:49] LABS: HEMATOCRIT 34.3 % (36.0-46.0); MCH 26.6 PG (29.0-34.0); MCHC 30.6 G/DL (30.0-36.0); MCV 87.1 FL (83-99); MEAN PLAT.VOLUME 11.4 uM^3 (9.5-12.4); PLATELET COUNT 356 K/uL (156-360); RBC DIS.WIDTH-CV 14.5 % (11.8-14.6); RBC DIS.WIDTH-SD 46.5 % (39-53); RED BLOOD COUNT 3.94 M/uL (3.80-5.20)
[2016-12-17 06:10] LABS: ANION GAP 9 MEQ/L (2-14); CHLORIDE 104 MEQ/L (99-109); GFR ESTIMATE (CALCULATED) > 59 mL/min/; GLUCOSE 145 mg/dL (70-99); MAGNESIUM 2.1 mg/dl (1.3-2.7); POTASSIUM 4.5 MEQ/L (3.7-5.4); SAMPLE HEMOLYSIS CHECK 0; SAMPLE ICTERIC CHECK 0; SAMPLE LIPEMIA CHECK 0; SODIUM 137 MEQ/L (136-147); UREA NITROGEN (BUN) 14 mg/dL (9-23)
[2016-12-18] VITALS (8 sets, daily range): BP systolic 104–153; BP diastolic 71–117
[2016-12-18 07:26] LABS: ALKALINE PHOSPHATASE 213 IU/L (3-129); ANION GAP 13 MEQ/L (2-14); CHLORIDE 103 MEQ/L (99-109); DIRECT BILIRUBIN 0.1 mg/dL (0.0-0.3); GFR ESTIMATE (CALCULATED) > 59 mL/min/; GLUCOSE 134 mg/dL (70-99); MAGNESIUM 2.1 mg/dl (1.3-2.7); POTASSIUM 4.4 MEQ/L (3.7-5.4); PREALBUMIN 38.2 mg/dL (10-40); SAMPLE HEMOLYSIS CHECK 0; SAMPLE ICTERIC CHECK 0; SAMPLE LIPEMIA CHECK 0; SODIUM 136 MEQ/L (136-147); TRIGLYCERIDES 360 MG/DL (Normal: <150); UREA NITROGEN (BUN) 16 mg/dL (9-23)
[2016-12-18 07:27] LABS: TOTAL BILIRUBIN 0.4 MG/DL (0.0-1.0)
[2016-12-18 07:28] LABS: EOSINOPHIL (%) 7.6 % (0-5); EOSINOPHIL COUNT 0.6 K/uL (0-0.3); HEMATOCRIT 40.1 % (36.0-46.0); IMMATURE GRANULOCYTE (%) 1.6 % (0.0-0.7); IMMATURE GRANULOCYTE COUNT 0.1 K/uL; INSTRUMENT ABS NEUTROPHIL CT 4.7 K/uL; LYMPHOCYTE COUNT 1.4 K/uL (1.0-2.8); MCH 27.6 PG (29.0-34.0); MCHC 31.9 G/DL (30.0-36.0); MCV 86.6 FL (83-99); MONOCYTE (%) 10.9 % (3-12); MONOCYTE COUNT 0.8 K/uL (0-0.8); NEUTROPHIL (%) 61.3 % (45-76); NEUTROPHIL COUNT 4.7 K/uL (1.8-6.4); RBC DIS.WIDTH-CV 14.8 % (11.8-14.6); RBC DIS.WIDTH-SD 46.5 % (39-53); RED BLOOD COUNT 4.63 M/uL (3.80-5.20); WHITE BLOOD COUNT 7.6 K/uL (4.1-10.2)
[2016-12-18 08:28] LABS: MEAN PLAT.VOLUME 11.5 uM^3 (9.5-12.4); PLATELET COUNT 271 K/uL (156-360)
[2016-12-18 08:29] LABS: PLAT.SUFFICIENCY ADEQUATE
[2016-12-19] VITALS: BP 119/67
[2016-12-19 04:00] VITALS: BP 109/67
[2016-12-19 06:10] LABS: ANION GAP 8 MEQ/L (2-14); CHLORIDE 104 MEQ/L (99-109); GFR ESTIMATE (CALCULATED) > 59 mL/min/; GLUCOSE 155 mg/dL (70-99); MAGNESIUM 2.1 mg/dl (1.3-2.7); POTASSIUM 4.4 MEQ/L (3.7-5.4); SAMPLE HEMOLYSIS CHECK 0; SAMPLE ICTERIC CHECK 0; SAMPLE LIPEMIA CHECK 0; SODIUM 136 MEQ/L (136-147); UREA NITROGEN (BUN) 16 mg/dL (9-23)
[2016-12-19 06:32] LABS: PROTHROMBIN TIME 10.5 (9.2-11.2); PTT 30.7 (25-32)
[2016-12-19 06:58] LABS: HEMATOCRIT 34.4 % (36.0-46.0); MCH 26.8 PG (29.0-34.0); MCHC 30.8 G/DL (30.0-36.0); MCV 87.1 FL (83-99); PLATELET COUNT 296 K/uL (156-360); RBC DIS.WIDTH-CV 14.6 % (11.8-14.6); RBC DIS.WIDTH-SD 46.8 % (39-53); RED BLOOD COUNT 3.95 M/uL (3.80-5.20); WHITE BLOOD COUNT 7.1 K/uL (4.1-10.2)
[2016-12-19 08:00] VITALS: BP 89/66
[2016-12-19 12:00] VITALS: BP 118/75
[2016-12-19 16:45] VITALS: BP 165/88
[2016-12-20 06:31] LABS: ANION GAP 15 MEQ/L (2-14); CHLORIDE 104 MEQ/L (99-109); GFR ESTIMATE (CALCULATED) > 59 mL/min/; GLUCOSE 130 mg/dL (70-99); MAGNESIUM 2.1 mg/dl (1.3-2.7); POTASSIUM 4.5 MEQ/L (3.7-5.4); SAMPLE HEMOLYSIS CHECK 0; SAMPLE ICTERIC CHECK 0; SAMPLE LIPEMIA CHECK 0; SODIUM 139 MEQ/L (136-147); UREA NITROGEN (BUN) 13 mg/dL (9-23)
[2016-12-20 08:00] VITALS: BP 116/93
[2016-12-20 12:00] VITALS: BP 133/90
[2016-12-20 16:00] VITALS: BP 142/72
[2016-12-21 05:15] LABS: CHLORIDE 104 mEq/L (99-109); POTASSIUM 4.1 mEq/L (3.7-5.4); SODIUM 135 mEq/L (136-147)
[2016-12-21 05:17] LABS: GLUCOSE 132 mg/dL (70-99)
[2016-12-21 05:18] LABS: ANION GAP 11 MEQ/L (2-14); MAGNESIUM 1.7 mg/dL (1.3-2.7)
[2016-12-21 05:21] LABS: GFR ESTIMATE (CALCULATED) > 59 mL/min/; UREA NITROGEN (BUN) 13 mg/dL (9-23)
[2016-12-21 08:00] VITALS: BP 102/61
[2016-12-21 12:00] VITALS: BP 126/87
[2016-12-21 16:00] VITALS: BP 119/94
[2016-12-21 20:00] VITALS: BP 132/74
[2016-12-21 22:00] VITALS: BP 110/62
[2016-12-22] VITALS: BP 109/53
[2016-12-22 04:00] VITALS: BP 129/71
[2016-12-22 06:02] LABS: ANION GAP 12 MEQ/L (2-14); CHLORIDE 105 MEQ/L (99-109); GFR ESTIMATE (CALCULATED) > 59 mL/min/; GLUCOSE 133 mg/dL (70-99); MAGNESIUM 2.2 mg/dl (1.3-2.7); SAMPLE HEMOLYSIS CHECK 0; SAMPLE ICTERIC CHECK 0; SAMPLE LIPEMIA CHECK 0; SODIUM 136 MEQ/L (136-147); UREA NITROGEN (BUN) 13 mg/dL (9-23)
[2016-12-22 09:00] VITALS: BP 144/72
[2016-12-22 14:00] VITALS: BP 150/83
[2016-12-22 17:30] VITALS: BP 131/76
[2016-12-22 22:00] VITALS: BP 131/76
[2016-12-23] VITALS: BP 131/76
[2016-12-23 04:00] VITALS: BP 122/61
[2016-12-23 06:52] LABS: ANION GAP 9 MEQ/L (2-14); CHLORIDE 103 MEQ/L (99-109); GFR ESTIMATE (CALCULATED) > 59 mL/min/; GLUCOSE 132 mg/dL (70-99); MAGNESIUM 2.1 mg/dl (1.3-2.7); SAMPLE HEMOLYSIS CHECK 0; SAMPLE ICTERIC CHECK 0; SAMPLE LIPEMIA CHECK 0; SODIUM 139 MEQ/L (136-147); UREA NITROGEN (BUN) 12 mg/dL (9-23)
[2016-12-23 06:53] LABS: POTASSIUM 3.9 MEQ/L (3.7-5.4)
[2016-12-23 09:00] VITALS: BP 124/94
[2016-12-23 13:00] VITALS: BP 151/83
[2016-12-23 21:00] VITALS: BP 157/103
[2016-12-24] VITALS (12 sets, daily range): BP systolic 94–144; BP diastolic 60–94
[2016-12-24 05:38] LABS: ANION GAP 11 MEQ/L (2-14); CHLORIDE 103 MEQ/L (99-109); GFR ESTIMATE (CALCULATED) > 59 mL/min/; GLUCOSE 128 mg/dL (70-99); MAGNESIUM 2.1 mg/dl (1.3-2.7); POTASSIUM 4.1 MEQ/L (3.7-5.4); SAMPLE HEMOLYSIS CHECK 0; SAMPLE ICTERIC CHECK 0; SAMPLE LIPEMIA CHECK 0; SODIUM 139 MEQ/L (136-147); UREA NITROGEN (BUN) 13 mg/dL (9-23)
[2016-12-24 06:04] LABS: HEMATOCRIT 34.2 % (36.0-46.0); MCH 27.9 PG (29.0-34.0); MCHC 32.2 G/DL (30.0-36.0); MCV 86.8 FL (83-99); MEAN PLAT.VOLUME 11.5 uM^3 (9.5-12.4); PLAT.SUFFICIENCY ADEQUATE; RBC DIS.WIDTH-CV 14.7 % (11.8-14.6); RBC DIS.WIDTH-SD 46.6 % (39-53); RED BLOOD COUNT 3.94 M/uL (3.80-5.20); WHITE BLOOD COUNT 8.3 K/uL (4.1-10.2)
[2016-12-24 06:17] LABS: PLATELET COUNT 200 K/uL (156-360)
[2016-12-25] VITALS (11 sets, daily range): BP systolic 87–139; BP diastolic 56–81
[2016-12-25 06:45] LABS: EOSINOPHIL (%) 13.8 % (0-5); EOSINOPHIL COUNT 1.1 K/uL (0-0.3); HEMATOCRIT 32.9 % (36.0-46.0); IMMATURE GRANULOCYTE (%) 0.9 % (0.0-0.7); IMMATURE GRANULOCYTE COUNT 0.1 K/uL; INSTRUMENT ABS NEUTROPHIL CT 4.5 K/uL; LYMPHOCYTE COUNT 1.5 K/uL (1.0-2.8); MCH 26.6 PG (29.0-34.0); MCHC 30.7 G/DL (30.0-36.0); MCV 86.8 FL (83-99); MEAN PLAT.VOLUME 11.5 uM^3 (9.5-12.4); MONOCYTE (%) 9.3 % (3-12); MONOCYTE COUNT 0.7 K/uL (0-0.8); NEUTROPHIL (%) 57.1 % (45-76); NEUTROPHIL COUNT 4.5 K/uL (1.8-6.4); PLATELET COUNT 199 K/uL (156-360); RBC DIS.WIDTH-CV 14.7 % (11.8-14.6); RBC DIS.WIDTH-SD 46.9 % (39-53); RED BLOOD COUNT 3.79 M/uL (3.80-5.20); WHITE BLOOD COUNT 7.8 K/uL (4.1-10.2)
[2016-12-25 07:18] LABS: ANION GAP 10 MEQ/L (2-14); CHLORIDE 104 MEQ/L (99-109); DIRECT BILIRUBIN 0.1 mg/dL (0.0-0.3); GFR ESTIMATE (CALCULATED) > 59 mL/min/; GLUCOSE 115 mg/dL (70-99); SAMPLE HEMOLYSIS CHECK 0; SAMPLE ICTERIC CHECK 0; SAMPLE LIPEMIA CHECK 0; SODIUM 138 MEQ/L (136-147); TOTAL BILIRUBIN 0.4 MG/DL (0.0-1.0); TRIGLYCERIDES 200 MG/DL (Normal: <150); UREA NITROGEN (BUN) 11 mg/dL (9-23)
[2016-12-25 07:19] LABS: ALKALINE PHOSPHATASE 159 IU/L (3-129)
[2016-12-26] VITALS (12 sets, daily range): BP systolic 102–155; BP diastolic 48–104
[2016-12-26 06:10] LABS: ANION GAP 11 MEQ/L (2-14); CHLORIDE 107 MEQ/L (99-109); GFR ESTIMATE (CALCULATED) > 59 mL/min/; GLUCOSE 114 mg/dL (70-99); POTASSIUM 3.9 MEQ/L (3.7-5.4); SAMPLE HEMOLYSIS CHECK 0; SAMPLE ICTERIC CHECK 0; SAMPLE LIPEMIA CHECK 0; SODIUM 138 MEQ/L (136-147); UREA NITROGEN (BUN) 13 mg/dL (9-23)
[2016-12-26 10:08] LABS: URINE UREA NITROGEN 4968 MG/24 HR
[2016-12-27] VITALS: BP 83/48
[2016-12-27 06:00] VITALS: BP 113/66
[2016-12-27 06:39] LABS: ANION GAP 10 MEQ/L (2-14); CHLORIDE 107 MEQ/L (99-109); GFR ESTIMATE (CALCULATED) > 59 mL/min/; GLUCOSE 133 mg/dL (70-99); POTASSIUM 4.4 MEQ/L (3.7-5.4); SAMPLE HEMOLYSIS CHECK 0; SAMPLE ICTERIC CHECK 0; SAMPLE LIPEMIA CHECK 0; SODIUM 140 MEQ/L (136-147); UREA NITROGEN (BUN) 13 mg/dL (9-23)
[2016-12-27 09:22] LABS: EOSINOPHIL (%) 9.1 % (0-5); EOSINOPHIL COUNT 0.6 K/uL (0-0.3); HEMATOCRIT 32.1 % (36.0-46.0); IMMATURE GRANULOCYTE (%) 0.9 % (0.0-0.7); IMMATURE GRANULOCYTE COUNT 0.1 K/uL; INSTRUMENT ABS NEUTROPHIL CT 3.9 K/uL; LYMPHOCYTE COUNT 1.5 K/uL (1.0-2.8); MCHC 30.8 G/DL (30.0-36.0); MCV 87.5 FL (83-99); MEAN PLAT.VOLUME 12.4 uM^3 (9.5-12.4); MONOCYTE (%) 9.4 % (3-12); MONOCYTE COUNT 0.6 K/uL (0-0.8); NEUTROPHIL COUNT 3.9 K/uL (1.8-6.4); PLATELET COUNT 234 K/uL (156-360); RBC DIS.WIDTH-CV 14.6 % (11.8-14.6); RBC DIS.WIDTH-SD 46.8 % (39-53); RED BLOOD COUNT 3.67 M/uL (3.80-5.20); WHITE BLOOD COUNT 6.7 K/uL (4.1-10.2)
[2016-12-27] MEDS ORDERED: DIAZEPAM2 MG PO (13:58)
[2016-12-27] MEDS ORDERED: LORATADINE10 M2 PO (13:58)
[2016-12-27] MEDS ORDERED: TYLENOL EXTRA500 MG PO (13:59)
== END 2016-12-27 15:41 | disposition home health service (06) | DRG 335 ==
LOC: 3EAST 14:24 → 4WEST 15:27 → 3EAST 15:27 → 4WEST 12-03 11:37 → 3EAST 12-03 11:59 → 4WEST 12-03 12:03
PROVIDERS: Hospitalist; Internal Medicine; Internal Medicine Critical Care Medicine; Physician Assistant; Student in an Organized Health Care Education/Training Program; Surgery
DX: K56.5 Intestinal adhesions [bands] with obstruction (postinfection) (principal); A41.9 Sepsis, unspecified organism; K65.9 Peritonitis, unspecified; E43 Unspecified severe protein-calorie malnutrition; E86.0 Dehydration; E87.6 Hypokalemia; K56.7 Ileus, unspecified; K29.70 Gastritis, unspecified, without bleeding; K31.7 Polyp of stomach and duodenum; B37.9 Candidiasis, unspecified; E87.4 Mixed disorder of acid-base balance; E87.0 Hyperosmolality and hypernatremia; E86.1 Hypovolemia; R21 Rash and other nonspecific skin eruption; R79.89 Other specified abnormal findings of blood chemistry; R26.9 Unspecified abnormalities of gait and mobility; G89.29 Other chronic pain; F41.9 Anxiety disorder, unspecified; I10 Essential (primary) hypertension; K21.9 Gastro-esophageal reflux disease without esophagitis; K22.70 Barrett's esophagus without dysplasia; N20.0 Calculus of kidney; E03.9 Hypothyroidism, unspecified; Z90.49 Acquired absence of other specified parts of digestive tract; Z98.1 Arthrodesis status; Z80.0 Family history of malignant neoplasm of digestive organs; Z83.3 Family history of diabetes mellitus; Z88.0 Allergy status to penicillin; Z88.2 Allergy status to sulfonamides; Z88.1 Allergy status to other antibiotic agents
CPT/HCPCS: 71010; 71020; 72193; 74000; 74020; 74176; 76937; 80048; 80053; 80076; 80202; 81003; 81050; 82150; 82248; 83605; 83690; 83735; 84100; 84134; 84478; 84540; 84630 90; 85025; 85027; 85610; 85730; 87040; 87641; 88305; 88342 TC; 93970; 94799; 97530 GO; 97530 GP; J0360; J0610; J1170; J1200; J1335; J1644; J1650; J2060; J2405; J2550; J2765; J3010; J3370; J3475; J3480; J7030; J7040; J7050; S0028; S0030; S0073

== ENCOUNTER 2016-12-28 20:17 | Emergency (ER) | payer BC, OTHER ==
[~2016-12-28] VITALS: Ht 160 cm; Wt 67.7 kg
[~2016-12-28 20:17] MED LIST changes: +DIAZEPAM2 MG PO; +LORATADINE10 M2 PO; +TYLENOL EXTRA500 MG PO
[2016-12-28 22:09] LABS: CHLORIDE 106 mEq/L (99-109); POTASSIUM 4.4 mEq/L (3.7-5.4); SODIUM 137 mEq/L (136-147)
[2016-12-28 22:11] LABS: GLUCOSE 162 mg/dL (70-99)
[2016-12-28 22:12] LABS: HEMATOCRIT 37.9 % (36.0-46.0); MCH 26.4 PG (29.0-34.0); MCHC 30.9 G/DL (30.0-36.0); MCV 85.4 FL (83-99); MEAN PLAT.VOLUME 11.3 uM^3 (9.5-12.4); PLATELET COUNT 319 K/uL (156-360); RBC DIS.WIDTH-CV 14.6 % (11.8-14.6); RBC DIS.WIDTH-SD 45.1 % (39-53); RED BLOOD COUNT 4.44 M/uL (3.80-5.20); WHITE BLOOD COUNT 11.3 K/uL (4.1-10.2)
[2016-12-28 22:13] LABS: ANION GAP 11 MEQ/L (2-14); TOTAL BILIRUBIN 0.4 mg/dL (0.0-1.0)
[2016-12-28 22:15] LABS: ALKALINE PHOSPHATASE 286 IU/L (3-129); GFR ESTIMATE (CALCULATED) > 59 mL/min/
[2016-12-28 22:18] LABS: LIPASE 43 U/L (1.0-51.0)
[2016-12-28 22:21] LABS: UREA NITROGEN (BUN) 23 mg/dL (9-23)
[2016-12-28 23:47] LABS: ADD MIUA? YES; BILIRUBIN NEGATIVE; BLOOD NEGATIVE; COLOR YELLOW ((YELLOW)); GLUCOSE (STRIP) NEGATIVE; KETONES NEGATIVE; LEUKOCYTES SMALL; NITRITE NEGATIVE; PROTEIN (STRIP) NEGATIVE; SPECIFIC GRAVITY 1.019 (1.000-1.030); UROBILINOGEN 0.2 MG/DL (0.2-1.0)
[2016-12-28 23:52] LABS: BACTERIA RARE /HPF; EPITHELIAL CELLS RARE /HPF; HYALINE CASTS TNTC /LPF; MUCUS TRACE /LPF; RED BLOOD CELLS 0-5 /HPF (0-5); UCUL ADDED? NO; WHITE BLOOD CELLS 15-20 /HPF (0-5)
[2016-12-29 00:28] LABS: TROP-I INTERPRETATION NEGATIVE; TROPONIN-I < 0.01 ng/mL (0.0-0.30)
[2016-12-29] MEDS ORDERED: ZOFRAN ODT4 MG PO (00:52)
[2016-12-29 03:35] VITALS: BP 98/48
== END 2016-12-29 03:35 | disposition home or self-care (01) ==
LOC: EME 20:17
DX: R11.2 Nausea with vomiting, unspecified (principal); Z87.442 Personal history of urinary calculi
CPT/HCPCS: 71010; 74020; 80053; 81003; 83690; 84484; 85027; 87086; 93005; 99281; 99285; C9113; J2765; J7030

== ENCOUNTER 2017-01-06 07:41 | Emergency (ER) | payer BC, OTHER ==
[~2017-01-06] VITALS: Ht 160 cm; Wt 67.2 kg
[~2017-01-06 07:41] MED LIST changes: +ZOFRAN ODT4 MG PO
[2017-01-06 09:43] LABS: CHLORIDE 109 mEq/L (99-109); POTASSIUM 4.9 mEq/L (3.7-5.4); SODIUM 139 mEq/L (136-147)
[2017-01-06 09:45] LABS: GLUCOSE 127 mg/dL (70-99)
[2017-01-06 09:46] LABS: ANION GAP 14 MEQ/L (2-14)
[2017-01-06 09:47] LABS: TOTAL BILIRUBIN 0.4 mg/dL (0.0-1.0)
[2017-01-06 09:48] LABS: ALKALINE PHOSPHATASE 163 IU/L (3-129)
[2017-01-06 09:49] LABS: GFR ESTIMATE (CALCULATED) > 59 mL/min/
[2017-01-06 09:50] LABS: UREA NITROGEN (BUN) 25 mg/dL (9-23)
[2017-01-06 09:51] LABS: ADD MIUA? YES; BILIRUBIN NEGATIVE; BLOOD NEGATIVE; COLOR YELLOW ((YELLOW)); GLUCOSE (STRIP) NEGATIVE; KETONES NEGATIVE; LEUKOCYTES MODERATE; NITRITE NEGATIVE; PROTEIN (STRIP) NEGATIVE; SPECIFIC GRAVITY 1.025 (1.000-1.030); UROBILINOGEN 0.2 MG/DL (0.2-1.0)
[2017-01-06 10:09] LABS: BACTERIA RARE /HPF; EPITHELIAL CELLS RARE /HPF; MUCUS NONE SEEN /LPF; RED BLOOD CELLS NONE SEEN /HPF (0-5); UCUL ADDED? YES
[2017-01-06 10:30] LABS: EOSINOPHIL COUNT 0.5 K/uL (0-0.3); HEMATOCRIT 35.2 % (36.0-46.0); IMMATURE GRANULOCYTE (%) 0.4 % (0.0-0.7); INSTRUMENT ABS NEUTROPHIL CT 4.8 K/uL; MCH 26.4 PG (29.0-34.0); MCHC 30.7 G/DL (30.0-36.0); MCV 86.1 FL (83-99); MEAN PLAT.VOLUME 11.3 uM^3 (9.5-12.4); MONOCYTE (%) 9.9 % (3-12); MONOCYTE COUNT 0.7 K/uL (0-0.8); NEUTROPHIL (%) 68.6 % (45-76); NEUTROPHIL COUNT 4.8 K/uL (1.8-6.4); PLATELET COUNT 309 K/uL (156-360); RBC DIS.WIDTH-CV 14.5 % (11.8-14.6); RBC DIS.WIDTH-SD 45.7 % (39-53); RED BLOOD COUNT 4.09 M/uL (3.80-5.20)
[2017-01-06 13:52] LABS: C DIFF TOXIN NEGATIVE (NEGATIVE); PROBE CHECK PASS; SPECIMEN PROCESSING CONTROL PASS
[2017-01-06] MEDS ORDERED: REGLAN5 MG PO (14:07)
[2017-01-06 14:45] VITALS: BP 115/69
== END 2017-01-06 14:45 | disposition home or self-care (01) ==
LOC: EME 07:41
PROVIDERS: Physician Assistant
DX: R11.0 Nausea (principal); R19.7 Diarrhea, unspecified; Z98.890 Other specified postprocedural states; Z90.49 Acquired absence of other specified parts of digestive tract; Z90.710 Acquired absence of both cervix and uterus; Z87.442 Personal history of urinary calculi; Z88.1 Allergy status to other antibiotic agents; I10 Essential (primary) hypertension
CPT/HCPCS: 74020; 74177; 80053; 81003; 83605; 85025; 87086; 87493; 99281; 99285; J2765; J7120

== ENCOUNTER 2017-01-16 20:45 | Inpatient (IN) | payer BC, OTHER ==
[~2017-01-16] VITALS: Ht 160 cm; Wt 69.0 kg
[~2017-01-16 20:45] MED LIST changes: +REGLAN5 MG PO
[2017-01-16 21:21] LABS: HEMATOCRIT 35.7 % (36.0-46.0); MCH 25.6 PG (29.0-34.0); MCHC 30.8 G/DL (30.0-36.0); RBC DIS.WIDTH-CV 14.1 % (11.8-14.6); RBC DIS.WIDTH-SD 42.2 % (39-53); WHITE BLOOD COUNT 10.4 K/uL (4.1-10.2)
[2017-01-16 21:27] LABS: CHLORIDE 106 mEq/L (99-109); POTASSIUM 3.7 mEq/L (3.7-5.4); SODIUM 138 mEq/L (136-147)
[2017-01-16 21:30] LABS: ANION GAP 12 MEQ/L (2-14)
[2017-01-16 21:33] LABS: GFR ESTIMATE (CALCULATED) > 59 mL/min/
[2017-01-16 21:34] LABS: GLUCOSE 169 mg/dL (70-99); UREA NITROGEN (BUN) 20 mg/dL (9-23)
[2017-01-16 22:02] LABS: EOSINOPHIL (%) 2.4 % (0-5); EOSINOPHIL COUNT 0.3 K/uL (0-0.3); IMMATURE GRANULOCYTE (%) 0.3 % (0.0-0.7); INSTRUMENT ABS NEUTROPHIL CT 9.4 K/uL; LYMPHOCYTE COUNT 0.4 K/uL (1.0-2.8); MONOCYTE (%) 3.2 % (3-12); MONOCYTE COUNT 0.3 K/uL (0-0.8); NEUTROPHIL (%) 90.5 % (45-76); NEUTROPHIL COUNT 9.4 K/uL (1.8-6.4); PLAT.SUFFICIENCY ADEQUATE; PLATELET CLUMPS PRESENT - PLATELET COUNT APPEARS ADQ.; PLATELET COUNT UNABLE TO REPORT K/uL (156-360)
[2017-01-16 23:34] LABS: ADD MIUA? YES; BILIRUBIN NEGATIVE; BLOOD NEGATIVE; COLOR YELLOW ((YELLOW)); GLUCOSE (STRIP) NEGATIVE; KETONES NEGATIVE; LEUKOCYTES SMALL; NITRITE NEGATIVE; PROTEIN (STRIP) NEGATIVE; SPECIFIC GRAVITY 1.012 (1.000-1.030); UROBILINOGEN 0.2 MG/DL (0.2-1.0)
[2017-01-16 23:39] LABS: BACTERIA RARE /HPF; EPITHELIAL CELLS RARE /HPF; HYALINE CASTS 0-5 /LPF; MUCUS NONE SEEN /LPF; RED BLOOD CELLS 0-5 /HPF (0-5); UCUL ADDED? YES
[2017-01-16] MEDS ORDERED: BENTYL20 MG PO (23:58)
[2017-01-16] MEDS ORDERED: COUGH DROPS1 EACH MM (23:59)
[2017-01-16] MEDS ORDERED: ALEVE220 MG PO (23:59)
[2017-01-17] VITALS (20 sets, daily range): BP systolic 0–149; BP diastolic 0–70
[2017-01-17] MEDS ORDERED: [UNRECOGNIZED DRUG - REMARK] TP
[2017-01-17 02:41] LABS: TOTAL BILIRUBIN 0.3 mg/dL (0.0-1.0)
[2017-01-17 02:42] LABS: ALKALINE PHOSPHATASE 132 IU/L (3-129)
[2017-01-17 02:45] LABS: DIRECT BILIRUBIN 0.1 mg/dL (0.0-0.3)
[2017-01-17 05:27] LABS: HEMATOCRIT 30.2 % (36.0-46.0); MCH 25.8 PG (29.0-34.0); MCHC 30.5 G/DL (30.0-36.0); MCV 84.6 FL (83-99); MEAN PLAT.VOLUME 12.1 uM^3 (9.5-12.4); RBC DIS.WIDTH-CV 14.1 % (11.8-14.6); RBC DIS.WIDTH-SD 43.8 % (39-53); RED BLOOD COUNT 3.57 M/uL (3.80-5.20); WHITE BLOOD COUNT 13.6 K/uL (4.1-10.2)
[2017-01-17 05:32] LABS: PLATELET COUNT 163 K/uL (156-360)
[2017-01-17 05:32] LABS: METH RESISTANT S AUREUS PCR NEGATIVE (NEGATIVE)
[2017-01-17 05:33] LABS: PROBE CHECK PASS; SPECIMEN PROCESSING CONTROL PASS
[2017-01-17 05:59] LABS: ANION GAP 11 MEQ/L (2-14); CHLORIDE 114 MEQ/L (99-109); GFR ESTIMATE (CALCULATED) > 59 mL/min/; GLUCOSE 143 mg/dL (70-99); MAGNESIUM 1.4 mg/dl (1.3-2.7); POTASSIUM 3.4 MEQ/L (3.7-5.4); SAMPLE HEMOLYSIS CHECK 0; SAMPLE ICTERIC CHECK 0; SAMPLE LIPEMIA CHECK 0; SODIUM 142 MEQ/L (136-147); UREA NITROGEN (BUN) 16 mg/dL (9-23)
[2017-01-17 07:07] LABS: LIPASE 8 U/L (1.0-51.0)
[2017-01-17 12:20] LABS: POINT-OF-CARE METER ID UU13113731
[2017-01-17 17:49] LABS: POINT-OF-CARE METER ID UU13113748
[2017-01-17 18:43] LABS: C DIFF TOXIN ND (NEGATIVE)
[2017-01-17 20:32] LABS: ANION GAP 8 MEQ/L (2-14); CHLORIDE 115 MEQ/L (99-109); POTASSIUM 3.8 MEQ/L (3.7-5.4); SAMPLE HEMOLYSIS CHECK 0; SAMPLE ICTERIC CHECK 0; SAMPLE LIPEMIA CHECK 0; SODIUM 142 MEQ/L (136-147); TOTAL BILIRUBIN 0.3 MG/DL (0.0-1.0)
[2017-01-17 20:39] LABS: ALKALINE PHOSPHATASE 85 IU/L (3-129); GFR ESTIMATE (CALCULATED) > 59 mL/min/; UREA NITROGEN (BUN) 12 mg/dL (9-23)
[2017-01-17 20:40] LABS: GLUCOSE 98 mg/dL (70-99)
[2017-01-18] VITALS (14 sets, daily range): BP systolic 87–132; BP diastolic 42–74
[2017-01-18 00:24] LABS: POINT-OF-CARE METER ID UU13113748; POINT-OF-CARE USER ID PHATLC
[2017-01-18 05:25] LABS: POINT-OF-CARE METER ID UU14208751; POINT-OF-CARE USER ID PHATLC
[2017-01-18 05:39] LABS: HEMATOCRIT 27.2 % (36.0-46.0); MCH 25.7 PG (29.0-34.0); MCHC 30.5 G/DL (30.0-36.0); MCV 84.2 FL (83-99); MEAN PLAT.VOLUME 12.5 uM^3 (9.5-12.4); PLATELET COUNT 122 K/uL (156-360); RBC DIS.WIDTH-CV 14.5 % (11.8-14.6); RED BLOOD COUNT 3.23 M/uL (3.80-5.20); WHITE BLOOD COUNT 4.8 K/uL (4.1-10.2)
[2017-01-18 06:07] LABS: ANION GAP 8 MEQ/L (2-14); CHLORIDE 115 MEQ/L (99-109); GFR ESTIMATE (CALCULATED) > 59 mL/min/; GLUCOSE 87 mg/dL (70-99); POTASSIUM 3.5 MEQ/L (3.7-5.4); SAMPLE HEMOLYSIS CHECK 0; SAMPLE ICTERIC CHECK 0; SAMPLE LIPEMIA CHECK 0; SODIUM 141 MEQ/L (136-147); UREA NITROGEN (BUN) 13 mg/dL (9-23)
[2017-01-18 06:13] LABS: MAGNESIUM 1.9 mg/dl (1.3-2.7)
[2017-01-18 12:18] LABS: POINT-OF-CARE METER ID UU14162636
[2017-01-18 17:53] LABS: POINT-OF-CARE METER ID UU13113748
[2017-01-19 00:42] VITALS: BP 122/58
[2017-01-19 04:59] VITALS: BP 106/51
[2017-01-19 05:17] LABS: HEMATOCRIT 28.2 % (36.0-46.0); MCH 25.7 PG (29.0-34.0); MCHC 31.2 G/DL (30.0-36.0); MCV 82.2 FL (83-99); MEAN PLAT.VOLUME 12.4 uM^3 (9.5-12.4); PLATELET COUNT 152 K/uL (156-360); RBC DIS.WIDTH-CV 14.5 % (11.8-14.6); RED BLOOD COUNT 3.43 M/uL (3.80-5.20); WHITE BLOOD COUNT 6.2 K/uL (4.1-10.2)
[2017-01-19 05:59] LABS: ALKALINE PHOSPHATASE 77 IU/L (3-129); ANION GAP 8 MEQ/L (2-14); CHLORIDE 111 MEQ/L (99-109); GFR ESTIMATE (CALCULATED) > 59 mL/min/; GLUCOSE 111 mg/dL (70-99); POTASSIUM 3.2 MEQ/L (3.7-5.4); SAMPLE HEMOLYSIS CHECK 0; SAMPLE ICTERIC CHECK 0; SAMPLE LIPEMIA CHECK 0; SODIUM 139 MEQ/L (136-147); TOTAL BILIRUBIN 0.2 MG/DL (0.0-1.0); UREA NITROGEN (BUN) 8 mg/dL (9-23)
[2017-01-19 07:47] VITALS: BP 120/62
[2017-01-19 09:18] LABS: ALKALINE PHOSPHATASE 76 IU/L (3-129); ANION GAP 11 MEQ/L (2-14); CHLORIDE 111 MEQ/L (99-109); GFR ESTIMATE (CALCULATED) > 59 mL/min/; MAGNESIUM 1.8 mg/dl (1.3-2.7); POTASSIUM 3.3 MEQ/L (3.7-5.4); PREALBUMIN 9.4 mg/dL (10-40); SAMPLE HEMOLYSIS CHECK 0; SAMPLE ICTERIC CHECK 0; SAMPLE LIPEMIA CHECK 0; SODIUM 140 MEQ/L (136-147); TRIGLYCERIDES 126 MG/DL (Normal: <150); UREA NITROGEN (BUN) 8 mg/dL (9-23)
[2017-01-19 09:20] LABS: GLUCOSE 109 mg/dL (70-99); TOTAL BILIRUBIN 0.2 MG/DL (0.0-1.0)
[2017-01-19 11:45] VITALS: BP 118/61
[2017-01-19 11:52] LABS: POINT-OF-CARE METER ID UU13113698; POINT-OF-CARE USER ID ENVKC36
[2017-01-19 16:00] VITALS: BP 130/68
[2017-01-19 17:12] LABS: POINT-OF-CARE METER ID UU13113698; POINT-OF-CARE USER ID ENVKC36
[2017-01-19 20:55] VITALS: BP 140/76
[2017-01-20 00:22] VITALS: BP 137/82
[2017-01-20 00:55] LABS: POINT-OF-CARE METER ID UU13113781
[2017-01-20 05:20] VITALS: BP 124/68
[2017-01-20 07:00] LABS: HEMATOCRIT 26.4 % (36.0-46.0); MCH 25.3 PG (29.0-34.0); MCHC 31.1 G/DL (30.0-36.0); MCV 81.5 FL (83-99); MEAN PLAT.VOLUME 12.6 uM^3 (9.5-12.4); PLATELET COUNT 178 K/uL (156-360); RBC DIS.WIDTH-CV 14.3 % (11.8-14.6); RBC DIS.WIDTH-SD 42.5 % (39-53); RED BLOOD COUNT 3.24 M/uL (3.80-5.20); WHITE BLOOD COUNT 6.6 K/uL (4.1-10.2)
[2017-01-20 07:20] LABS: ANION GAP 9 MEQ/L (2-14); CHLORIDE 110 MEQ/L (99-109); GFR ESTIMATE (CALCULATED) > 59 mL/min/; MAGNESIUM 1.9 mg/dl (1.3-2.7); POTASSIUM 3.6 MEQ/L (3.7-5.4); SAMPLE HEMOLYSIS CHECK 0; SAMPLE ICTERIC CHECK 0; SAMPLE LIPEMIA CHECK 0; SODIUM 141 MEQ/L (136-147); UREA NITROGEN (BUN) 10 mg/dL (9-23)
[2017-01-20 07:21] LABS: GLUCOSE 205 mg/dL (70-99)
[2017-01-20 07:50] VITALS: BP 138/63
[2017-01-20 11:35] VITALS: BP 128/63
[2017-01-20 11:50] LABS: Estimated Average Glucose 131 mg/dL (70-123); HEMOGLOBIN A1c (GLYCOHEMOGLOB) 6.2 % HGB (Below 5.7)
[2017-01-20 12:05] LABS: BILIRUBIN NEGATIVE; BLOOD NEGATIVE; COLOR YELLOW ((YELLOW)); GLUCOSE (STRIP) 50; KETONES NEGATIVE; LEUKOCYTES NEGATIVE; NITRITE NEGATIVE; PROTEIN (STRIP) NEGATIVE; SPECIFIC GRAVITY 1.012 (1.000-1.030); UROBILINOGEN 0.2 MG/DL (0.2-1.0)
[2017-01-20 12:08] LABS: ADD MIUA? NO; UCUL ADDED? NO
[2017-01-20 16:00] VITALS: BP 139/64
[2017-01-20 18:28] LABS: POINT-OF-CARE METER ID UU13113803
[2017-01-20 21:10] VITALS: BP 134/63
[2017-01-21 00:04] VITALS: BP 149/67
[2017-01-21 00:23] LABS: POINT-OF-CARE METER ID UU13113803
[2017-01-21 04:18] VITALS: BP 136/70
[2017-01-21 06:30] LABS: POINT-OF-CARE METER ID UU13113781
[2017-01-21 07:17] LABS: MCH 25.4 PG (29.0-34.0); MCHC 31.5 G/DL (30.0-36.0); MCV 80.8 FL (83-99); PLATELET COUNT 215 K/uL (156-360); RBC DIS.WIDTH-CV 14.4 % (11.8-14.6); RBC DIS.WIDTH-SD 42.6 % (39-53); RED BLOOD COUNT 3.34 M/uL (3.80-5.20)
[2017-01-21 07:20] VITALS: BP 135/64
[2017-01-21 07:45] LABS: ANION GAP 7 MEQ/L (2-14); CHLORIDE 107 MEQ/L (99-109); GFR ESTIMATE (CALCULATED) > 59 mL/min/; GLUCOSE 212 mg/dL (70-99); MAGNESIUM 1.9 mg/dl (1.3-2.7); POTASSIUM 3.9 MEQ/L (3.7-5.4); SAMPLE HEMOLYSIS CHECK 0; SAMPLE ICTERIC CHECK 0; SAMPLE LIPEMIA CHECK 0; SODIUM 139 MEQ/L (136-147); UREA NITROGEN (BUN) 10 mg/dL (9-23)
[2017-01-21 11:31] VITALS: BP 160/72
[2017-01-21 11:58] LABS: POINT-OF-CARE METER ID UU13113803
[2017-01-21 16:00] VITALS: BP 140/68
[2017-01-21 17:59] LABS: POINT-OF-CARE METER ID UU13113781
[2017-01-21 19:37] VITALS: BP 143/74
[2017-01-21 19:38] LABS: C DIFF TOXIN NEGATIVE (NEGATIVE)
[2017-01-21 19:59] LABS: PROBE CHECK PASS; SPECIMEN PROCESSING CONTROL PASS
[2017-01-22] VITALS (7 sets, daily range): BP systolic 112–169; BP diastolic 58–79
[2017-01-22 05:37] LABS: HEMATOCRIT 24.7 % (36.0-46.0); MCH 26.2 PG (29.0-34.0); MCHC 32.4 G/DL (30.0-36.0); MEAN PLAT.VOLUME 12.1 uM^3 (9.5-12.4); PLATELET COUNT 226 K/uL (156-360); RBC DIS.WIDTH-CV 14.6 % (11.8-14.6); RBC DIS.WIDTH-SD 43.2 % (39-53); RED BLOOD COUNT 3.05 M/uL (3.80-5.20)
[2017-01-22 06:16] LABS: ANION GAP 9 MEQ/L (2-14); CHLORIDE 105 MEQ/L (99-109); DIRECT BILIRUBIN 0.1 mg/dL (0.0-0.3); GFR ESTIMATE (CALCULATED) > 59 mL/min/; GLUCOSE 197 mg/dL (70-99); POTASSIUM 3.8 MEQ/L (3.7-5.4); PREALBUMIN 6.9 mg/dL (10-40); SAMPLE HEMOLYSIS CHECK 0; SAMPLE ICTERIC CHECK 0; SAMPLE LIPEMIA CHECK 0; SODIUM 139 MEQ/L (136-147); TOTAL BILIRUBIN 0.2 MG/DL (0.0-1.0); TRIGLYCERIDES 85 MG/DL (Normal: <150); UREA NITROGEN (BUN) 12 mg/dL (9-23)
[2017-01-22 06:18] LABS: ALKALINE PHOSPHATASE 361 IU/L (3-129)
[2017-01-22 11:53] LABS: POINT-OF-CARE USER ID ENVKC36
[2017-01-22 18:11] LABS: POINT-OF-CARE METER ID UU13113781; POINT-OF-CARE USER ID ENVKC36
[2017-01-22 21:07] LABS: POINT-OF-CARE METER ID UU13113781
[2017-01-23 05:08] VITALS: BP 141/65
[2017-01-23 05:16] LABS: EOSINOPHIL (%) 7.9 % (0-5); EOSINOPHIL COUNT 0.6 K/uL (0-0.3); HEMATOCRIT 25.4 % (36.0-46.0); IMMATURE GRANULOCYTE COUNT 0.1 K/uL; INSTRUMENT ABS NEUTROPHIL CT 4.5 K/uL; MCH 26.3 PG (29.0-34.0); MCHC 31.9 G/DL (30.0-36.0); MCV 82.5 FL (83-99); MEAN PLAT.VOLUME 11.7 uM^3 (9.5-12.4); MONOCYTE (%) 12.6 % (3-12); MONOCYTE COUNT 0.9 K/uL (0-0.8); NEUTROPHIL (%) 63.1 % (45-76); NEUTROPHIL COUNT 4.5 K/uL (1.8-6.4); PLATELET COUNT 264 K/uL (156-360); RBC DIS.WIDTH-CV 14.8 % (11.8-14.6); RBC DIS.WIDTH-SD 44.8 % (39-53); RED BLOOD COUNT 3.08 M/uL (3.80-5.20); WHITE BLOOD COUNT 7.1 K/uL (4.1-10.2)
[2017-01-23 05:43] LABS: ANION GAP 8 MEQ/L (2-14); CHLORIDE 107 MEQ/L (99-109); GFR ESTIMATE (CALCULATED) > 59 mL/min/; GLUCOSE 163 mg/dL (70-99); MAGNESIUM 2.1 mg/dl (1.3-2.7); POTASSIUM 4.1 MEQ/L (3.7-5.4); SAMPLE HEMOLYSIS CHECK 0; SAMPLE ICTERIC CHECK 0; SAMPLE LIPEMIA CHECK 0; SODIUM 141 MEQ/L (136-147); UREA NITROGEN (BUN) 13 mg/dL (9-23)
[2017-01-23 07:21] VITALS: BP 134/66
[2017-01-23 09:04] LABS: POINT-OF-CARE METER ID UU13113803; POINT-OF-CARE USER ID NUTSLF44
[2017-01-23 11:06] VITALS: BP 129/66
[2017-01-23 11:19] VITALS: BP 104/58
[2017-01-23 11:24] LABS: POINT-OF-CARE METER ID UU13113803
[2017-01-23 16:02] VITALS: BP 133/66
[2017-01-23 18:05] LABS: POINT-OF-CARE METER ID UU13113803; POINT-OF-CARE USER ID NUTSLF44
[2017-01-23 20:04] VITALS: BP 147/68
[2017-01-23 20:57] LABS: POINT-OF-CARE METER ID UU13113781
[2017-01-24] VITALS (7 sets, daily range): BP systolic 122–146; BP diastolic 60–74
[2017-01-24 04:42] LABS: CHLORIDE 105 mEq/L (99-109); POTASSIUM 4.2 mEq/L (3.7-5.4); SODIUM 138 mEq/L (136-147)
[2017-01-24 04:44] LABS: GLUCOSE 143 mg/dL (70-99); WHITE BLOOD COUNT 7.3 K/uL (4.1-10.2)
[2017-01-24 04:45] LABS: HEMATOCRIT 26.9 % (36.0-46.0); MCH 25.8 PG (29.0-34.0); MCV 80.8 FL (83-99); MEAN PLAT.VOLUME 11.5 uM^3 (9.5-12.4); PLATELET COUNT 317 K/uL (156-360); RBC DIS.WIDTH-CV 14.7 % (11.8-14.6); RBC DIS.WIDTH-SD 42.9 % (39-53); RED BLOOD COUNT 3.33 M/uL (3.80-5.20)
[2017-01-24 04:46] LABS: ANION GAP 9 MEQ/L (2-14)
[2017-01-24 04:48] LABS: GFR ESTIMATE (CALCULATED) > 59 mL/min/
[2017-01-24 04:49] LABS: UREA NITROGEN (BUN) 13 mg/dL (9-23)
[2017-01-24 08:38] LABS: POINT-OF-CARE METER ID UU13113698
[2017-01-24 21:17] LABS: POINT-OF-CARE METER ID UU13113781
[2017-01-25 04:34] VITALS: BP 134/67
[2017-01-25 04:51] LABS: HEMATOCRIT 25.5 % (36.0-46.0); MCH 25.2 PG (29.0-34.0); MCV 81.5 FL (83-99); MEAN PLAT.VOLUME 11.6 uM^3 (9.5-12.4); PLATELET COUNT 321 K/uL (156-360); RBC DIS.WIDTH-SD 44.4 % (39-53); RED BLOOD COUNT 3.13 M/uL (3.80-5.20); WHITE BLOOD COUNT 7.5 K/uL (4.1-10.2)
[2017-01-25 05:15] LABS: CHLORIDE 106 mEq/L (99-109); POTASSIUM 4.6 mEq/L (3.7-5.4); SODIUM 140 mEq/L (136-147)
[2017-01-25 05:16] LABS: MAGNESIUM 2.2 mg/dL (1.3-2.7)
[2017-01-25 05:17] LABS: GLUCOSE 161 mg/dL (70-99)
[2017-01-25 05:19] LABS: ANION GAP 9 MEQ/L (2-14)
[2017-01-25 05:21] LABS: GFR ESTIMATE (CALCULATED) > 59 mL/min/
[2017-01-25 05:22] LABS: UREA NITROGEN (BUN) 14 mg/dL (9-23)
[2017-01-25 07:52] VITALS: BP 148/70
[2017-01-25 08:07] LABS: POINT-OF-CARE USER ID ENVKC36
[2017-01-25 11:53] VITALS: BP 146/67
[2017-01-25 12:07] LABS: POINT-OF-CARE USER ID ENVKC36
[2017-01-25 14:04] LABS: TROP-I INTERPRETATION NEGATIVE; TROPONIN-I < 0.01 ng/mL (0.0-0.30)
[2017-01-25 14:30] VITALS: BP 136/62
[2017-01-25 16:40] LABS: POINT-OF-CARE USER ID ENVKC36
[2017-01-25 17:19] LABS: TROP-I INTERPRETATION NEGATIVE; TROPONIN-I < 0.01 ng/mL (0.0-0.30)
[2017-01-25 18:50] VITALS: BP 139/76
[2017-01-25 18:57] LABS: TROP-I INTERPRETATION NEGATIVE; TROPONIN-I 0.01 ng/mL (0.0-0.30)
[2017-01-25 23:40] VITALS: BP 122/58
[2017-01-26 01:01] LABS: TROP-I INTERPRETATION NEGATIVE; TROPONIN-I < 0.01 ng/mL (0.0-0.30)
[2017-01-26 04:29] VITALS: BP 146/70
[2017-01-26 07:07] LABS: EOSINOPHIL (%) 6.1 % (0-5); EOSINOPHIL COUNT 0.4 K/uL (0-0.3); IMMATURE GRANULOCYTE COUNT 0.1 K/uL; INSTRUMENT ABS NEUTROPHIL CT 4.3 K/uL; LYMPHOCYTE COUNT 0.9 K/uL (1.0-2.8); MCH 25.9 PG (29.0-34.0); MCHC 31.2 G/DL (30.0-36.0); MCV 83.1 FL (83-99); MEAN PLAT.VOLUME 11.1 uM^3 (9.5-12.4); MONOCYTE (%) 16.1 % (3-12); MONOCYTE COUNT 1.1 K/uL (0-0.8); NEUTROPHIL (%) 62.5 % (45-76); NEUTROPHIL COUNT 4.3 K/uL (1.8-6.4); PLATELET COUNT 332 K/uL (156-360); RBC DIS.WIDTH-CV 15.1 % (11.8-14.6); RBC DIS.WIDTH-SD 45.9 % (39-53); RED BLOOD COUNT 3.01 M/uL (3.80-5.20); WHITE BLOOD COUNT 6.9 K/uL (4.1-10.2)
[2017-01-26 07:35] LABS: POINT-OF-CARE METER ID UU13113698
[2017-01-26 07:46] LABS: ALKALINE PHOSPHATASE 254 IU/L (3-129); ANION GAP 6 MEQ/L (2-14); CHLORIDE 103 MEQ/L (99-109); GFR ESTIMATE (CALCULATED) > 59 mL/min/; GLUCOSE 163 mg/dL (70-99); MAGNESIUM 2.2 mg/dl (1.3-2.7); POTASSIUM 4.7 MEQ/L (3.7-5.4); SAMPLE HEMOLYSIS CHECK 0; SAMPLE ICTERIC CHECK 0; SAMPLE LIPEMIA CHECK 0; SODIUM 136 MEQ/L (136-147); TOTAL BILIRUBIN 0.2 MG/DL (0.0-1.0); UREA NITROGEN (BUN) 16 mg/dL (9-23)
[2017-01-26 08:22] VITALS: BP 118/61
[2017-01-26 08:57] LABS: IRON 13 MCG/DL (35-150)
[2017-01-26 09:32] LABS: FERRITIN 50 NG/ML (10-291)
[2017-01-26 11:23] LABS: POINT-OF-CARE METER ID UU13113698
[2017-01-26 11:40] VITALS: BP 117/60
[2017-01-26 15:09] VITALS: BP 140/69
[2017-01-26 20:04] VITALS: BP 122/79
[2017-01-26 20:47] LABS: POINT-OF-CARE USER ID ENVMNS
[2017-01-26 22:37] VITALS: BP 109/56
[2017-01-27 04:49] VITALS: BP 135/62
[2017-01-27 05:57] LABS: HEMATOCRIT 27.3 % (36.0-46.0); MCV 83.2 FL (83-99); MEAN PLAT.VOLUME 11.1 uM^3 (9.5-12.4); NRBC (%) 0.3 /100 WBC (0-0); PLATELET COUNT 359 K/uL (156-360); RBC DIS.WIDTH-SD 46.1 % (39-53); RED BLOOD COUNT 3.28 M/uL (3.80-5.20); WHITE BLOOD COUNT 5.9 K/uL (4.1-10.2)
[2017-01-27 06:23] LABS: ANION GAP 10 MEQ/L (2-14); CHLORIDE 108 MEQ/L (99-109); GFR ESTIMATE (CALCULATED) > 59 mL/min/; GLUCOSE 123 mg/dL (70-99); MAGNESIUM 2.2 mg/dl (1.3-2.7); POTASSIUM 4.2 MEQ/L (3.7-5.4); SAMPLE HEMOLYSIS CHECK 0; SAMPLE ICTERIC CHECK 0; SAMPLE LIPEMIA CHECK 0; SODIUM 141 MEQ/L (136-147); UREA NITROGEN (BUN) 18 mg/dL (9-23)
[2017-01-27 07:17] VITALS: BP 129/63
[2017-01-27 12:30] VITALS: BP 136/71
[2017-01-27 15:31] LABS: ADD MIUA? YES; BILIRUBIN NEGATIVE; BLOOD NEGATIVE; COLOR YELLOW ((YELLOW)); GLUCOSE (STRIP) NEGATIVE; KETONES NEGATIVE; LEUKOCYTES TRACE; NITRITE NEGATIVE; PROTEIN (STRIP) NEGATIVE; SPECIFIC GRAVITY 1.016 (1.000-1.030); UROBILINOGEN 0.2 MG/DL (0.2-1.0)
[2017-01-27 16:42] LABS: CASTS PRESENT /LPF; EPITHELIAL CELLS 1+ /HPF; HYALINE CASTS 0-5 /LPF; MUCUS 1+ /LPF
[2017-01-27 16:43] LABS: BACTERIA NONE SEEN /HPF; RED BLOOD CELLS NONE SEEN /HPF (0-5)
[2017-01-27 16:48] VITALS: BP 124/59
[2017-01-27 18:43] VITALS: BP 160/73
[2017-01-27 21:05] LABS: POINT-OF-CARE METER ID UU13113698
[2017-01-27 22:46] VITALS: BP 114/58
[2017-01-28 05:12] VITALS: BP 145/62
[2017-01-28 05:54] LABS: ANION GAP 9 MEQ/L (2-14); CHLORIDE 109 MEQ/L (99-109); GFR ESTIMATE (CALCULATED) > 59 mL/min/; GLUCOSE 138 mg/dL (70-99); MAGNESIUM 1.9 mg/dl (1.3-2.7); POTASSIUM 4.1 MEQ/L (3.7-5.4); SAMPLE HEMOLYSIS CHECK 0; SAMPLE ICTERIC CHECK 0; SAMPLE LIPEMIA CHECK 0; SODIUM 140 MEQ/L (136-147); UREA NITROGEN (BUN) 18 mg/dL (9-23)
[2017-01-28 07:19] VITALS: BP 121/58
[2017-01-28 07:43] LABS: POINT-OF-CARE METER ID UU13113698
[2017-01-28 12:21] VITALS: BP 104/57
[2017-01-28 16:38] VITALS: BP 144/62
[2017-01-28 19:23] VITALS: BP 116/69
[2017-01-28 22:43] VITALS: BP 139/63
[2017-01-29 05:06] VITALS: BP 118/56
[2017-01-29 05:46] LABS: EOSINOPHIL (%) 5.3 % (0-5); EOSINOPHIL COUNT 0.4 K/uL (0-0.3); HEMATOCRIT 27.6 % (36.0-46.0); IMMATURE GRANULOCYTE COUNT 0.1 K/uL; INSTRUMENT ABS NEUTROPHIL CT 4.5 K/uL; LYMPHOCYTE COUNT 1.1 K/uL (1.0-2.8); MCH 25.9 PG (29.0-34.0); MCHC 30.1 G/DL (30.0-36.0); MONOCYTE (%) 11.8 % (3-12); MONOCYTE COUNT 0.8 K/uL (0-0.8); NEUTROPHIL (%) 65.3 % (45-76); NEUTROPHIL COUNT 4.5 K/uL (1.8-6.4); PLATELET COUNT 401 K/uL (156-360); RBC DIS.WIDTH-CV 15.8 % (11.8-14.6); RBC DIS.WIDTH-SD 49.3 % (39-53); RED BLOOD COUNT 3.21 M/uL (3.80-5.20); WHITE BLOOD COUNT 6.9 K/uL (4.1-10.2)
[2017-01-29 06:23] LABS: ALKALINE PHOSPHATASE 240 IU/L (3-129); ANION GAP 9 MEQ/L (2-14); CHLORIDE 110 MEQ/L (99-109); GFR ESTIMATE (CALCULATED) > 59 mL/min/; GLUCOSE 142 mg/dL (70-99); MAGNESIUM 1.9 mg/dl (1.3-2.7); POTASSIUM 4.8 MEQ/L (3.7-5.4); PREALBUMIN 17.6 mg/dL (10-40); SAMPLE HEMOLYSIS CHECK 0; SAMPLE ICTERIC CHECK 0; SAMPLE LIPEMIA CHECK 0; SODIUM 140 MEQ/L (136-147); TOTAL BILIRUBIN 0.2 MG/DL (0.0-1.0); TRIGLYCERIDES 134 MG/DL (Normal: <150); UREA NITROGEN (BUN) 22 mg/dL (9-23)
[2017-01-29 07:24] VITALS: BP 124/60
[2017-01-29 07:36] LABS: POINT-OF-CARE METER ID UU13113803
[2017-01-29] MEDS ORDERED: NIFEREX-150,FE150 MG PO (08:03)
[2017-01-29] MEDS ORDERED: ELIQUIS5 MG PO (08:04)
[2017-01-29] MEDS ORDERED: LOPERAMIDE2 MG PO (08:05)
[2017-01-29 11:26] VITALS: BP 122/58
== END 2017-01-29 13:14 | disposition home health service (06) | DRG 314 ==
LOC: EME 20:45 → EDOF 01-17 02:18 → 4WEST 01-17 02:18 → 4EAST 01-17 02:18 → ENRESERV 01-17 02:19 → 4WEST 01-17 03:48 → ENRESERV 01-18 18:10 → 4EAST 01-18 20:04
PROVIDERS: Emergency Medicine; Hospitalist; Internal Medicine; Internal Medicine Cardiovascular Disease; Internal Medicine Critical Care Medicine; Physician Assistant; Surgery
PROC: 02HV33Z Insertion of Infusion Device into Superior Vena Cava, Percutaneous Approach (ICD-10-PCS; principal; 2017-01-17)
PROC: 3E0436Z Introduction of Nutritional Substance into Central Vein, Percutaneous Approach (ICD-10-PCS; 2017-01-20)
DX: T80.211A Bloodstream infection due to central venous catheter, initial encounter (principal); A41.1 Sepsis due to other specified staphylococcus; R65.21 Severe sepsis with septic shock; Y84.8 Other medical procedures as the cause of abnormal reaction of the patient, or of later complication, without mention of misadventure at the time of the procedure; I26.99 Other pulmonary embolism without acute cor pulmonale; J18.9 Pneumonia, unspecified organism; N17.9 Acute kidney failure, unspecified; E43 Unspecified severe protein-calorie malnutrition; K56.60 Unspecified intestinal obstruction; E87.2 Acidosis; E86.0 Dehydration; E86.1 Hypovolemia; I10 Essential (primary) hypertension; E03.9 Hypothyroidism, unspecified; E23.0 Hypopituitarism; K21.9 Gastro-esophageal reflux disease without esophagitis; K22.70 Barrett's esophagus without dysplasia; R73.03 Prediabetes; E87.6 Hypokalemia; D53.9 Nutritional anemia, unspecified; D50.9 Iron deficiency anemia, unspecified; Z68.28 Body mass index [BMI] 28.0-28.9, adult; Z90.49 Acquired absence of other specified parts of digestive tract; Z86.718 Personal history of other venous thrombosis and embolism; Z86.19 Personal history of other infectious and parasitic diseases; Z87.442 Personal history of urinary calculi; Z90.711 Acquired absence of uterus with remaining cervical stump; Z80.0 Family history of malignant neoplasm of digestive organs; Z83.3 Family history of diabetes mellitus
CPT/HCPCS: 36415; 71010; 71250; 71275; 76937; 80048; 80053; 80076; 80202; 81003; 82248; 82272; 82607; 82728; 82746; 82948; 83036; 83540; 83605; 83690; 83735; 84100; 84134; 84466; 84478; 84484; 84540; 84630 90; 85025; 85027; 85379; 87040; 87070; 87077; 87086; 87186; 87493; 87641; 87801; 93005; 93970; 94640; 94799; 97530 GO; 97530 GP; 99202; 99281; 99285; C1751; J0692; J1200; J1644; J1650; J1756; J1815; J2270; J2405; J2765; J2997; J3360; J3370; J3475; J3480; J7030; J7050; J7120; S0028; S0030; S0073